=== PATIENT | male | born 1930 | race Caucasian/White ===

== ENCOUNTER 2016-03-23 13:07 | Outpatient (CLI) ==
[2012-08-21 10:30] VITALS: BP 112/68; TEMP 97.3
[2016-03-11 07:49] VITALS: BMI 23.8
[2016-03-23 14:50] LABS: BILIRUBIN,URINE Negative (NEGATIVE); KETONES,URINE Negative (NEGATIVE); LEUKOCYTE ESTERASE ,URINE Negative (NEGATIVE); NITRITE,URINE Negative (NEGATIVE); PH,URINE 5.5 (5-9); PROTEIN,URINE Negative (NEGATIVE); URINE, BLOOD Negative (NEGATIVE)
[2016-03-23 14:54] LABS: ADD URINE MICROSCOPIC NO
== END 2016-03-23 13:08 | disposition home or self-care (01) ==
LOC: LAB 13:07
PROVIDERS: ATTEND General Practice
DX: N40.1 Benign prostatic hyperplasia with lower urinary tract symptoms (principal)
CPT/HCPCS: 81001

== ENCOUNTER 2016-04-24 09:26 | Outpatient (CLI) ==
[2012-08-21 10:30] VITALS: BP 112/68; TEMP 97.3
[2016-03-11 07:49] VITALS: BMI 23.8
--- NOTE | 2016-04-24 10:50 | US ---
Examination: Huerta-scale and real-time color Doppler imaging of the carotid arteries. Comparison: 03/24/2015. Reason for study: Hypertension, memory loss. FINDINGS: Right side: There is a moderate amount of dense atherosclerotic plaque seen within the common carotid, the bulb, and the proximal internal carotid artery on the right. The peak systolic velocity in the right internal carotid artery is elevated measuring 140 cm/sec. T he right peak systolic velocity ratio of is within normal limits measuring 1.7. There is normal rig ht antegrade vertebral artery flow. Left side: There is moderate amount of dense atherosclerotic plaque seen within the common carotid, the bulb, a nd the proximal internal carotid artery in the left. The left internal carotid artery peak systolic velocity is within normal limits measuring 80 cm/sec with a peak systolic velocity ratio measuring 0.9. There is normal antegrade flow in the left verte bral artery. Impression: 1. Moderate plaque formation in the right internal carotid artery bulb resulting in hemodynamically moderate stenosis of 50-69%. 2. Moderate plaque formation in the left internal carotid artery bulb resulting in mild hemodynamic stenosis of less than 50%.
== END 2016-04-24 09:27 | disposition home or self-care (01) ==
LOC: RAD 09:26
PROVIDERS: ATTEND General Practice
DX: R09.89 Other specified symptoms and signs involving the circulatory and respiratory systems (principal)

== ENCOUNTER 2016-06-02 16:11 | Outpatient (CLI) ==
[2012-08-21 10:30] VITALS: BP 112/68; TEMP 97.3
[2016-03-11 07:49] VITALS: BMI 23.8
[2016-06-02 16:43] LABS: FLU INTERNAL QC INTERNAL QC VALID; RAPID FLU A POSITIVE (NEGATIVE); RAPID FLU B NEGATIVE (NEGATIVE)
== END 2016-06-02 16:12 | disposition home or self-care (01) ==
LOC: LAB 16:11
PROVIDERS: ATTEND General Practice
DX: R50.9 Fever, unspecified (principal)
CPT/HCPCS: 87651; 87804; 87880

== ENCOUNTER 2016-07-13 09:12 | Outpatient (CLI) ==
[2012-08-21 10:30] VITALS: BP 112/68; TEMP 97.3
[2016-03-11 07:49] VITALS: BMI 23.8
--- NOTE | 2016-07-13 09:31 | DI ---
EXAM: Chest two views HISTORY: Heart failure, unspecified COMPARISON: 12/06/2015 TECHNIQUE: Two views of the chest were performed FINDINGS: The lungs are clear. Lungs are hyperinflated. There is no pleural effusion or pneumothora x. The heart is normal in size. Calcified pleural plaques. The mediastinal contour is unchanged, no ting atherosclerosis. There are no acute abnormalities of the bones. IMPRESSION: 1. No acute cardiopulmonary process. 2. Calcified pleural plaques, consistent with prior asbestos exposure. 3. Hyperinflated lungs may suggest chronic obstructive pulmonary disease
== END 2016-07-13 09:13 | disposition home or self-care (01) ==
LOC: RAD 09:12
PROVIDERS: ATTEND General Practice
DX: I50.9 Heart failure, unspecified (principal); I27.2 Other secondary pulmonary hypertension; I48.91 Unspecified atrial fibrillation; K21.9 Gastro-esophageal reflux disease without esophagitis; M53.9 Dorsopathy, unspecified; M12.88 Other specific arthropathies, not elsewhere classified, other specified site; M47.816 Spondylosis without myelopathy or radiculopathy, lumbar region; D64.9 Anemia, unspecified; N40.1 Benign prostatic hyperplasia with lower urinary tract symptoms; G47.00 Insomnia, unspecified; M51.27 Other intervertebral disc displacement, lumbosacral region; Z79.899 Other long term (current) drug therapy
CPT/HCPCS: 36415; 80053; 80061; 81001; 83880; 85025; 93005; 93010

== ENCOUNTER 2016-07-13 10:35 | Outpatient (CLI) ==
[2012-08-21 10:30] VITALS: BP 112/68; TEMP 97.3
[2016-03-11 07:49] VITALS: BMI 23.8
[2016-07-13 13:56] LABS: BASOPHILS # (AUTO) 0.1 K/uL (0-0.2); BASOPHILS % (AUTO) 0.9 % (0.0-3.0); EOSINOPHILS # (AUTO) 0.3 K/ul (0.0-0.7); EOSINOPHILS % (AUTO) 4.4 % (0.0-7.0); HEMATOCRIT 37.4 % (42.0-52.0); HEMOGLOBIN 11.9 g/dl (14.0-18.0); IMMATURE GRANULOCYTE % (AUTO) 0.3 % (0.0-5.0); LYMPHOCYTES # (AUTO) 1.9 K/uL (0.60-3.4); MEAN CORPUSCULAR HEMOGLOBIN 28.3 pg (27.0-31.0); MEAN CORPUSCULAR HGB CONC 31.8 (31.8-35.4); MEAN CORPUSCULAR VOLUME 88.8 fl (80.0-94.0); MONOCYTES # (AUTO) 0.5 K/uL (0.4-2.0); MONOCYTES % (AUTO) 7.8 (0-10); NEUTROPHILS # (AUTO) 3.2 K/ul (2.0-6.9); NEUTROPHILS % (AUTO) 54.6; PLATELET COUNT 162 10^3/uL (140-440); RED BLOOD COUNT 4.21 10^6/ul (4.70-6.10); WHITE BLOOD COUNT 5.88 K/ul (4.2-10.2)
[2016-07-13 13:57] LABS: ADD URINE MICROSCOPIC YES; BILIRUBIN,URINE Negative (NEGATIVE); KETONES,URINE Trace (NEGATIVE); LEUKOCYTE ESTERASE ,URINE Negative (NEGATIVE); NITRITE,URINE Negative (NEGATIVE); PROTEIN,URINE 2+ (NEGATIVE); URINE, BLOOD Trace-intact (NEGATIVE)
[2016-07-13 15:14] LABS: ALBUMIN/GLOBULIN RATIO 1.03; ANION GAP 12.4; BILIRUBIN,TOTAL 1.41 mg/dL (0.00-1.20); BUN/CREATININE RATIO 19.23; CALCIUM 9.8 mg/dL (8.2-10.2); CHOL/HDL RATIO 2.5 (4.5-6.4); CREATININE 1.3 mg/dL (0.60-1.10); POTASSIUM 4.4 mmol/L (3.5-5.1); TOTAL PROTEIN 7.9 g/dL (5.8-8.1)
== END 2016-07-13 10:36 | disposition home or self-care (01) ==
LOC: LAB 10:35
PROVIDERS: ATTEND General Practice
DX: I50.9 Heart failure, unspecified (principal); K21.9 Gastro-esophageal reflux disease without esophagitis; M53.9 Dorsopathy, unspecified; M12.88 Other specific arthropathies, not elsewhere classified, other specified site; M47.816 Spondylosis without myelopathy or radiculopathy, lumbar region; I48.91 Unspecified atrial fibrillation; D64.9 Anemia, unspecified; N40.1 Benign prostatic hyperplasia with lower urinary tract symptoms; G47.00 Insomnia, unspecified; M51.27 Other intervertebral disc displacement, lumbosacral region; I27.2 Other secondary pulmonary hypertension; Z79.899 Other long term (current) drug therapy
CPT/HCPCS: 36415; 80053; 80061; 81001; 83880; 85025

== ENCOUNTER 2016-07-24 07:00 | Day surgery (SDC) ==
[2016-03-11 07:49] VITALS: BMI 23.8
[2016-07-24] MEDS: OCUFEN 0.03% OPTH SOL OP PRN ×3 (08:10→08:35)
[2016-07-24] MEDS: CYCLOGYL 2% OPTH OP PRN ×3 (08:10→08:20)
[2016-07-24] MEDS: TETRACAINE 0.5% UNIT-DOSE OP PRN ×3 (08:10→08:35)
[2016-07-24] MEDS: AK-DILATE 10% OPTH SOL OP PRN ×3 (08:10→08:20)
[2016-07-24] MEDS ORDERED: LIDOCAINE 1% 20 ML MDV ID ONE (08:22)
[2016-07-24] MEDS ORDERED: LIDOCAINE 1% 20 ML MDV ONE (08:22)
[2016-07-24] MEDS ORDERED: SUBLIMAZE ONE (08:49)
[2016-07-24] MEDS ORDERED: VERSED ONE (08:49)
[2016-07-24] MEDS ORDERED: TIMOPTIC 0.5% OPTH OP ONE (09:19)
[2016-07-24] MEDS ORDERED: DIAMOX PO ONE (09:50)
[2016-07-24] MEDS ORDERED: DIAMOX ONE (09:50)
[2016-07-24 10:10] VITALS: BP 124/68; TEMP 97.4
--- NOTE | 2016-07-24 14:53 | OP ---
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 OPERATION: PHACOEMULSIFICATION ASPIRATION OF CATARACT LEFT EYE; EXCISION OF PTERYGIUM TEMPORAL CORNEA, LEFT EYE. PLACEMENT OF POSTERIOR CHAMBER LENS. PHACO TIME 42.4 SECONDS AT 15.0% POWER. LENS MODEL LEO [id number]. DIOPTER + 22.5D. TECHNIQUE: CLEAR CORNEA. ANESTHESIA: TOPICAL ANESTHESIA W/ANESTHESIA MONITORING. OPERATIVE REPORT: Topical anesthesia consisting of Tetracaine was applied to the cornea and Xylocaine Methyl Paraben free of MFP was injected intracamerally into the anterior chamber. The patient was then brought into the operating room , prepped and draped in the usual ophthalmic manner. A lid speculum was placed and the operating microscope was used. A paracentesis was made at the 3 o' clock position. A clear corneal incision was made just out to the limbus. The anterior chamber was entered just inside the clear cornea. Viscoelastic was injected into the anterior chamber. A capsulotomy was performed with a bent # 27 gauge needle. Phacoemulsification was then performed in the posterior chamber. After completion of the phacoemulsification, residual cortical material was aspirated with the irrigation-aspiration system. The posterior capsule was polished. Viscoelastic was injected into the anterior and posterior chambers to inflate the capsular bag. Lens were placed via an Unfolder system and stabilized in the bag. Viscoelastic was removed from the anterior chamber. The wound was checked for any leakage. The four sponges were removed from the fornix. Topical antibiotic steroid and nonsteroidal drops were also applied to the cornea. A West shield was applied. The patient had temporal pterygium at the site of incision. The pterygium was excised and corneal base was polished. The patient left the operating room in good condition without any complications. INTRAOPERATIVE MEDICATIONS: Xylocaine Methyl Paraben Free MPF MTDD
== END 2016-07-24 10:30 | disposition home or self-care (01) ==
LOC: SURG 07:00
PROVIDERS: ATTEND Ophthalmology
DX: H25.12 Age-related nuclear cataract, left eye (principal); H11.002 Unspecified pterygium of left eye

== ENCOUNTER 2016-10-13 08:41 | Outpatient (CLI) ==
[2012-08-21 10:30] VITALS: TEMP 97.3
[2016-03-11 07:49] VITALS: BMI 23.8
[2016-10-13 12:54] LABS: BASOPHILS % (AUTO) 0.7 % (0.0-3.0); EOSINOPHILS # (AUTO) 0.3 K/ul (0.0-0.7); EOSINOPHILS % (AUTO) 4.2 % (0.0-7.0); HEMATOCRIT 36.5 % (42.0-52.0); HEMOGLOBIN 11.9 g/dl (14.0-18.0); IMMATURE GRANULOCYTE % (AUTO) 0.3 % (0.0-5.0); LYMPHOCYTES # (AUTO) 1.8 K/uL (0.60-3.4); LYMPHOCYTES % (AUTO) 30.1 (10.0-50.0); MEAN CORPUSCULAR HEMOGLOBIN 28.9 pg (27.0-31.0); MEAN CORPUSCULAR HGB CONC 32.6 (31.8-35.4); MEAN CORPUSCULAR VOLUME 88.6 fl (80.0-94.0); MONOCYTES # (AUTO) 0.5 K/uL (0.4-2.0); MONOCYTES % (AUTO) 8.5 (0-10); NEUTROPHILS # (AUTO) 3.4 K/ul (2.0-6.9); NEUTROPHILS % (AUTO) 56.2; PLATELET COUNT 154 10^3/uL (140-440); RED BLOOD COUNT 4.12 10^6/ul (4.70-6.10); WHITE BLOOD COUNT 6.01 K/ul (4.2-10.2)
[2016-10-13 12:58] LABS: BILIRUBIN,URINE Negative (NEGATIVE); KETONES,URINE Negative (NEGATIVE); LEUKOCYTE ESTERASE ,URINE Negative (NEGATIVE); NITRITE,URINE Negative (NEGATIVE); PH,URINE 6.5 (5-9); PROTEIN,URINE 2+ (NEGATIVE); URINE, BLOOD 1+ (NEGATIVE)
[2016-10-13 13:06] LABS: ADD URINE MICROSCOPIC YES
[2016-10-13 13:09] LABS: ALBUMIN 3.7 g/dL (3.4-5.0); ALBUMIN/GLOBULIN RATIO 0.95; ANION GAP 16.1; BILIRUBIN,TOTAL 1.07 mg/dL (0.00-1.20); BUN/CREATININE RATIO 20.35; CALCIUM 9.9 mg/dL (8.2-10.2); CHOL/HDL RATIO 2.6 (4.5-6.4); CREATININE 1.13 mg/dL (0.60-1.10); POTASSIUM 4.1 mmol/L (3.5-5.1); TOTAL PROTEIN 7.6 g/dL (5.8-8.1)
== END 2016-10-13 08:42 | disposition home or self-care (01) ==
LOC: LAB 08:41
PROVIDERS: ATTEND General Practice
DX: I50.9 Heart failure, unspecified (principal); I65.21 Occlusion and stenosis of right carotid artery; I48.91 Unspecified atrial fibrillation; D64.9 Anemia, unspecified; N40.1 Benign prostatic hyperplasia with lower urinary tract symptoms; K21.9 Gastro-esophageal reflux disease without esophagitis; I27.2 Other secondary pulmonary hypertension; Z79.899 Other long term (current) drug therapy
CPT/HCPCS: 36415; 80053; 80061; 81001; 83880; 85025

== ENCOUNTER 2016-10-18 07:08 | Outpatient (CLI) ==
[2012-08-21 10:30] VITALS: TEMP 97.3
[2016-03-11 07:49] VITALS: BMI 23.8
--- NOTE | 2016-10-18 08:34 | US ---
EXAM: Renal ultrasound. History: Microscopic hematuria. Comparison: CT abdomen pelvis 03/11/2016 Technique: Multiple sonographic images through the kidneys were obtained. Color duplex Doppler was used to interrogate vascular flow. Findings: The right kidney measures 10.5 cm in long length without evidence for hydronephrosis, mass or shadow ing calculus. The left kidney measures 10.6 cm in long length without evidence for hydronephrosis, mass or shadowi ng calculus. 2 cm soft tissue mass seen near the base of the bladder. Prostate is enlarged and abutting the base of the bladder. Neither ureteral jet was visualized within the bladder. Bladder is not well diste nded. Impression: 1. Sonographically normal kidneys. 2. Concern for soft tissue bladder mass that could be malignant. Further evaluation recommended. 3. Enlarged prostate abutting base of bladder.
== END 2016-10-18 07:09 | disposition home or self-care (01) ==
LOC: RAD 07:08
PROVIDERS: ATTEND General Practice
DX: R31.29 Other microscopic hematuria (principal)
CPT/HCPCS: 76770

== ENCOUNTER 2016-10-24 12:26 | Outpatient (CLI) ==
[2012-08-21 10:30] VITALS: TEMP 97.3
[2016-03-11 07:49] VITALS: BMI 23.8
--- NOTE | 2016-10-24 13:18 | CT ---
EXAM: CT of the soft tissue neck without contrast History: Right ear infection. Technique: Multiplanar CT images through the soft tissue neck were obtained without the administrat ion of IV contrast Findings: The visualized lung apices are free of consolidation. Degenerative changes of the cervic al spine. Epiglottis is not thickened. Mild mucosal thickening of the paranasal sinuses. No fluid seen within the mastoid air cells. Surrounding soft tissues demonstrate no acute findings. No par otid masses or parotid inflammation. Submandibular glands are not inflamed. Atherosclerotic vascul ar calcifications of the carotid arteries. Evaluation for lymph nodes is limited due to the lack of contrast administration but no pathologically enlarged lymph nodes are identified. No discrete thy roid nodule identified by CT. Peritonsillar inflammation. Orbits are intact. Impression: 1. Mild paranasal sinus disease. 2. No acute findings within the soft tissue neck. 3. Atherosclerotic vascular disease.
== END 2016-10-24 12:27 | disposition home or self-care (01) ==
LOC: RAD 12:26
PROVIDERS: ATTEND General Practice
DX: R22.1 Localized swelling, mass and lump, neck (principal)

== ENCOUNTER 2017-02-15 14:40 | Outpatient (CLI) ==
[2012-08-21 10:30] VITALS: TEMP 97.3
[2017-01-03 15:02] VITALS: BMI 24.5
[2017-02-15 15:00] LABS: BASOPHILS # (AUTO) 0.1 K/uL (0-0.2); BASOPHILS % (AUTO) 0.9 % (0.0-3.0); EOSINOPHILS # (AUTO) 0.3 K/ul (0.0-0.7); EOSINOPHILS % (AUTO) 6.2 % (0.0-7.0); HEMATOCRIT 37.7 % (42.0-52.0); IMMATURE GRANULOCYTE % (AUTO) 0.4 % (0.0-5.0); LYMPHOCYTES % (AUTO) 36.8 (10.0-50.0); MEAN CORPUSCULAR HEMOGLOBIN 28.4 pg (27.0-31.0); MEAN CORPUSCULAR HGB CONC 31.8 (31.8-35.4); MEAN CORPUSCULAR VOLUME 89.3 fl (80.0-94.0); MONOCYTES # (AUTO) 0.5 K/uL (0.4-2.0); MONOCYTES % (AUTO) 9.5 (0-10); NEUTROPHILS # (AUTO) 2.5 K/ul (2.0-6.9); NEUTROPHILS % (AUTO) 46.2; PLATELET COUNT 151 10^3/uL (140-440); RED BLOOD COUNT 4.22 10^6/ul (4.70-6.10); WHITE BLOOD COUNT 5.46 K/ul (4.2-10.2)
[2017-02-15 15:02] LABS: BILIRUBIN,URINE Negative (NEGATIVE); KETONES,URINE Negative (NEGATIVE); LEUKOCYTE ESTERASE ,URINE Trace (NEGATIVE); NITRITE,URINE Negative (NEGATIVE); PROTEIN,URINE 2+ (NEGATIVE); URINE, BLOOD 1+ (NEGATIVE)
[2017-02-15 15:06] LABS: ADD URINE MICROSCOPIC YES
[2017-02-15 15:15] LABS: ALBUMIN 3.5 g/dL (3.4-5.0); ALBUMIN/GLOBULIN RATIO 0.85; BILIRUBIN,TOTAL 1.24 mg/dL (0.00-1.20); BUN/CREATININE RATIO 16.94; CALCIUM 9.8 mg/dL (8.2-10.2); CHOL/HDL RATIO 2.8 (4.5-6.4); CREATININE 1.18 mg/dL (0.60-1.10); TOTAL PROTEIN 7.6 g/dL (5.8-8.1)
== END 2017-02-15 14:41 | disposition home or self-care (01) ==
LOC: LAB 14:40
PROVIDERS: ATTEND General Practice
DX: I50.9 Heart failure, unspecified (principal); I65.21 Occlusion and stenosis of right carotid artery; I48.91 Unspecified atrial fibrillation; D64.9 Anemia, unspecified; N40.1 Benign prostatic hyperplasia with lower urinary tract symptoms; K21.9 Gastro-esophageal reflux disease without esophagitis; I27.20 Pulmonary hypertension, unspecified; Z79.899 Other long term (current) drug therapy
CPT/HCPCS: 36415; 80053; 80061; 81001; 85025

== ENCOUNTER 2017-06-11 07:42 | Outpatient (CLI) ==
[2012-08-21 10:30] VITALS: TEMP 97.3
[2017-01-03 15:02] VITALS: BMI 24.5
== END 2017-06-11 07:43 | disposition home or self-care (01) ==
LOC: LAB 07:42
PROVIDERS: ATTEND General Practice
DX: D64.9 Anemia, unspecified (principal); Z79.899 Other long term (current) drug therapy
CPT/HCPCS: 36415; 80053; 80061; 81001; 85025

== ENCOUNTER 2017-09-04 15:21 | Outpatient (CLI) ==
[2012-08-21 10:30] VITALS: TEMP 97.3
[2017-01-03 15:02] VITALS: BMI 24.5
--- NOTE | 2017-09-04 16:04 | US ---
EXAM: Bilateral carotid artery Doppler History: Right carotid stenosis, follow-up Comparison: Bilateral carotid artery Doppler 04/24/2016 Technique: Multiple sonographic images through the bilateral internal carotid arteries were obtained . Color duplex Doppler was used to interrogate vascular flow. Findings: The right ICA peak systolic velocity is within normal limits measuring 70 cm/sec. The right ICA/cca PSV ratio is normal at 1.1. The right vertebral artery is patent and demonstrates antegrade flow. G ray scale images demonstrate moderate plaque buildup within the right internal carotid artery. The left ICA peak systolic velocity is within normal limits measuring 70 cm/sec. The left ICA/cca PS V ratio is normal at 0.90. The left vertebral artery is patent and demonstrates antegrade flow. Gra y scale images demonstrate moderate plaque buildup within the left internal carotid artery. Impression: 1. The velocities and ratios indicate no significant hemodynamic stenosis of the bilateral internal carotid arteries. 2. However, alicea scale findings indicate moderate plaque buildup within the bilateral internal carot id arteries. Clarification can be obtained with a CTA of the neck.
== END 2017-09-04 15:22 | disposition home or self-care (01) ==
LOC: RAD 15:21
PROVIDERS: ATTEND General Practice
DX: R09.89 Other specified symptoms and signs involving the circulatory and respiratory systems (principal); I65.21 Occlusion and stenosis of right carotid artery; I48.91 Unspecified atrial fibrillation
CPT/HCPCS: 93005; 93010

== ENCOUNTER 2017-09-12 06:02 | Outpatient (CLI) ==
[2012-08-21 10:30] VITALS: TEMP 97.3
[2017-01-03 15:02] VITALS: BMI 24.5
== END 2017-09-12 06:03 | disposition home or self-care (01) ==
LOC: LAB 06:02
PROVIDERS: ATTEND General Practice
DX: I50.9 Heart failure, unspecified (principal); K21.9 Gastro-esophageal reflux disease without esophagitis; D64.9 Anemia, unspecified; I27.20 Pulmonary hypertension, unspecified; N40.1 Benign prostatic hyperplasia with lower urinary tract symptoms; I48.91 Unspecified atrial fibrillation; I65.21 Occlusion and stenosis of right carotid artery; Z79.899 Other long term (current) drug therapy; Z12.5 Encounter for screening for malignant neoplasm of prostate
CPT/HCPCS: 36415; 80053; 80061; 81001; 85025

== ENCOUNTER 2017-09-24 07:01 | Day surgery (SDC) ==
[2017-01-03 15:02] VITALS: BMI 24.5
[2017-09-24] MEDS: CYCLOGYL 2% OPTH OP PRN ×3 (07:51→08:01)
[2017-09-24] MEDS: TETRACAINE 0.5% UNIT-DOSE OP PRN ×3 (07:51→09:25)
[2017-09-24] MEDS: AK-DILATE 10% OPTH SOL OP PRN ×3 (07:52→08:01)
[2017-09-24] MEDS: OCUFEN 0.03% OPTH SOL OP PRN ×2 (07:52→08:07)
[2017-09-24] MEDS ORDERED: BETADINE OPTH PREP OP ONE (07:57)
[2017-09-24] MEDS ORDERED: LIDOCAINE 1% 20 ML MDV ID STA (07:57)
[2017-09-24] MEDS ORDERED: DIAMOX PO STA (07:57)
[2017-09-24] MEDS ORDERED: DIPRIVAN 20 ML VIAL IVP ONE (09:28)
[2017-09-24] MEDS ORDERED: VERSED ONE (09:28)
[2017-09-24] MEDS ORDERED: LIDOCAINE HCL 1% SDV INJ PRN (09:46)
[2017-09-24] MEDS ORDERED: BSS WITH EPINEPHRINE OP ONE (09:46)
[2017-09-24] MEDS ORDERED: VANCOMYCIN INTRAOCULA PRN (10:00)
[2017-09-24] MEDS ORDERED: GENTAK OPTH OINT OP PRN (10:00)
[2017-09-24] MEDS ORDERED: GENTAMICIN SULFATE INTRAOCULA PRN (10:00)
[2017-09-24] MEDS ORDERED: SOLU-CORTEF 250 MG INTRAOCULA PRN (10:00)
[2017-09-24] MEDS ORDERED: DIAMOX ONE (11:25)
[2017-09-24 15:02] VITALS: TEMP 98.6
[2017-09-24 15:03] VITALS: BP 121/56
--- NOTE | 2017-09-25 09:07 | OP ---
PREOPERATIVE DIAGNOSIS: CATARACT EXTRACTION WITH IOL, RIGHT EYE. INJECTION PARA PLANA VITREOUS 3.00 MM. POSTOPERATIVE DIAGNOSIS: SAME. OPERATION PHACOEMULSIFICATION ASPIRATION OF CATARACT RIGHT EYE. PLACEMENT OF POSTERIOR CHAMBER LENS. PHACO TIME 30.9 SECONDS AT 5.0% POWER. LENS MODEL TECSERVANDO [id number]. DIOPTER +21.0D. TECHNIQUE: CLEAR CORNEA. ANESTHESIA: TOPICAL ANESTHESIA W/ANESTHESIA MONITORING. OPERATIVE REPORT: Topical anesthesia consisting of Tetracaine was applied to the cornea and Xylocaine Methyl Paraben free of MFP was injected intracamerally into the anterior chamber. The patient was then brought into the operating room , prepped and draped in the usual ophthalmic manner. A lid speculum was placed and the operating microscope was used. A paracentesis was made at the 3 o' clock position. A clear corneal incision was made just out to the limbus. The anterior chamber was entered just inside the clear cornea. Viscoelastic was injected into the anterior chamber. A capsulotomy was performed with a bent # 27 gauge needle. Phacoemulsification was then performed in the posterior chamber. After completion of the phacoemulsification, residual cortical material was aspirated with the irrigation-aspiration system. The posterior capsule was polished. Viscoelastic was injected into the anterior and posterior chambers to inflate the capsular bag. Lens were placed via an Unfolder system and stabilized in the bag. Viscoelastic was removed from the anterior chamber. The wound was checked for any leakage. The four sponges were removed from the fornix. Topical antibiotic steroid and nonsteroidal drops were also applied to the cornea. A West shield was applied. The patient left the operating room in good condition without any complications. INTRAOPERATIVE MEDICATIONS: Xylocaine Methyl Paraben Free MPF ADDENDUM: Following removal of epi nucleus, patient moved causing posterior capsule to impale phaco tip. Central rent occupied in the posterior capsule. Remaining cortex was removed using [place]. However some cortex plus vitreous remained. Anterior vitrectomy was performed through [place] incision. Lens was placed in sulcus. Pupil remained small and round. Subconjunctival injection with vancomycin, gentamicin and Solu-Cortef. Para plana incision closed with 5.0 Vicryl. [facility]ITALChristoph
== END 2017-09-24 11:30 | disposition home or self-care (01) ==
LOC: SURG 07:01
PROVIDERS: ATTEND Ophthalmology
DX: H25.11 Age-related nuclear cataract, right eye (principal); H25.011 Cortical age-related cataract, right eye; Z96.1 Presence of intraocular lens

== ENCOUNTER 2017-10-05 17:01 | Observation (INO) ==
[2017-10-05 17:32] VITALS: BMI 23.7
[2017-10-05] MEDS: DEXTROSE 5%-1/2NS IV SOLUTION 1,000 ML IV SCH (17:52)
--- NOTE | 2017-10-05 18:32 | CT ---
Exam: CT abdomen pelvis without intravenous contrast. Comparison: 03/11/2016. Reason for exam: Abdominal pain. FINDINGS: Image interpretation is limited by the lack of intravenous contrast administration. Partially calcified pleural plaque is seen in the right hemidiaphragm. The partially imaged heart ap pears prominent in size. Atherosclerotic disease is seen within the aorta and distal arterial vasculature. Layering stones/sludge is seen within the dependent portion of the gallbladder. The liver has a nodu lar appearance. The spleen, pancreas, and adrenal glands appear grossly unremarkable. Hypodensities are seen in the left kidney incompletely characterize without intravenous contrast. No hydronephrosis, hydroureter or nephrolithiasis in either kidney. There is a moderately-sized right inguinal bowel containing hernia. The bladder appears grossly unremarkable. No inflammatory changes are seen within the abdominal or pelvic fat. No intra-abdominal free air or pelvic free fluid. No suspicious appearing osteoblastic or osteolytic lesions with degenerative disease in the lumbosacr al spine. Diverticulosis without evidence of diverticulitis Impression: 1. Indeterminate density exophytic left renal nodule on axial image number 61. Ultrasound is recomme nded for further characterization. 2. Cholelithiasis without obvious cholecystitis. Ultrasound may be performed for further characteri zation. 3. Bowel containing right inguinal hernia without evidence of obstruction. 4. Partially calcified and calcified pleural plaques
[2017-10-05] MEDS ORDERED: OCUFLOX 0.3% OPTH SOL OP SCH (21:00)
[2017-10-05] MEDS ORDERED: KETOROLAC TROMETHAMINE RIGHTEYE SCH (21:00)
[2017-10-05] MEDS ORDERED: NON-FORMULARY MEDICATION (Dabigatran Etexilate Mesylate [Pradaxa] 150 MG) PO SCH (21:00)
[2017-10-05] MEDS ORDERED: PRED FORTE 1% OPTH SOL OP SCH (21:00)
[2017-10-05] MEDS: PROTONIX IV IVP SCH (22:04)
[2017-10-05] MEDS ORDERED: CRAMPS PO PRN (23:58)
[2017-10-06] MEDS: DEXTROSE 5%-1/2NS IV SOLUTION 1,000 ML IV SCH ×2 (05:52→17:48)
[2017-10-06] MEDS ORDERED: LASIX TAB PO SCH ×2 (06:30→09:00)
[2017-10-06] MEDS: PROTONIX IV IVP SCH ×2 (08:01→22:16)
[2017-10-06] MEDS: NON-FORMULARY MEDICATION (Dabigatran Etexilate Mesylate [Pradaxa] 150 MG) PO SCH ×2 (08:04→22:16)
[2017-10-06] MEDS: PROSCAR PO SCH (08:05)
[2017-10-06] MEDS: KETOROLAC TROMETHAMINE RIGHTEYE SCH ×3 (08:05→22:16)
[2017-10-06] MEDS: PRED FORTE 1% OPTH SOL OP SCH ×3 (08:05→22:16)
[2017-10-06] MEDS: OCUFLOX 0.3% OPTH SOL OP SCH ×3 (08:05→22:16)
[2017-10-07] MEDS: DEXTROSE 5%-1/2NS IV SOLUTION 1,000 ML IV SCH (06:02)
[2017-10-07] MEDS ORDERED: LASIX TAB PO SCH (06:30)
[2017-10-07] MEDS: OCUFLOX 0.3% OPTH SOL OP SCH ×2 (08:40→15:16)
[2017-10-07] MEDS: NON-FORMULARY MEDICATION (Dabigatran Etexilate Mesylate [Pradaxa] 150 MG) PO SCH (08:40)
[2017-10-07] MEDS: KETOROLAC TROMETHAMINE RIGHTEYE SCH ×2 (08:40→15:17)
[2017-10-07] MEDS: PRED FORTE 1% OPTH SOL OP SCH ×2 (08:40→15:17)
[2017-10-07] MEDS: PROSCAR PO SCH (08:42)
[2017-10-07] MEDS: PROTONIX IV IVP SCH (09:15)
[2017-10-07 13:28] VITALS: BP 158/84; TEMP 97
--- NOTE | 2017-10-08 11:43 | HP ---
DATE OF SERVICE: 10/05/17 CHIEF COMPLAINT/HISTORY OF PRESENT ILLNESS: Upper abdominal pain beginning at the lower area right lower quadrant radiating to the epigastric area and some reflux problems. This began about 3 o'clock in the morning on the day of admission. The patient presented to the office and the examination revealed some tenderness more in the epigastric area but also in the right upper quadrant. This patient was known to have cholelithiasis. CT scan was ordered as an outpatient; however, it took so much time to get it approved, the patient had constant pain so at this time I felt that it probably should be examined further since it could possibly be peptic ulcer disease and maybe with a GI bleed and also that this patient is on Pradaxa. The patient with abdominal pain, had vomited once and also had diarrhea. The patient's WBC before admission was 5,590, hemoglobin 12.2, hematocrit 37.2. Platelet 143,000 and differential normal. BUN slightly elevated at 23, creatinine 1.16, GFR 60. Total bilirubin 2.1. The patient's total bilirubin had been increasing, reason to me is undetermined. The AST and ALT were normal. Urinalysis 2+ protein otherwise unremarkable. PAST PERSONAL HISTORY: The patient had recent cataract extraction with lens implantation. The patient was admitted because of hematuria, too numerous to count. This patient is on Pradaxa. He also had back pain in the past plus hypertension, atrial fibrillation on Pradaxa, congestive heart failure probably secondary to atrial fibrillation, GERD, coronary artery disease, dyslipidemia, pulmonary hypertension, sleep apnea with C-PAP, prostatic problems, treated. The patient had prostatic surgery 2015. FAMILY HISTORY: Father of septicemia; mother had congestive heart failure. Two brothers had malignancy, one brother had myocardial infarction and continued heart problems. SOCIAL HISTORY: The patient is a , self-sufficient. He has good support from his daughter. He stopped smoking years ago. No alcoholic beverages. MEDICATIONS: (PRIOR TO THIS ADMISSION) Proscar 5 mg daily Glucosamine Chondroitin one tablet daily Pepcid 20 mg daily Simvastatin 20 mg daily at bedtime Flomax 0.4 mg daily Leg cramp medication [id number] one daily Ferrous Sulfate 325 mg twice a day Lasix 40 mg daily Pradaxa 150 mg twice a day Antacid 30 cc p.o. daily Loratadine 10 mg daily Potassium Chloride 20 mEq tablet daily Citrucal plus D one daily Xalatan one drop both eyes at bedtime ALLERGIES: DICLOFENAC SODIUM AND PENICILLIN REVIEW OF SYSTEMS: CONSTITUTIONAL: The patient is alert without any fever or chills. No significant fatigue. AMMONIA DISTILLER: Denies any headaches. No ataxia, no syncopal episode, no seizure disorder. He is alert and oriented. VISUAL: Denies any double vision, loss of vision or blurred vison or hemaniopsia. AUDITORY: The patient is able to hear and denies any tinnitus, pain or drainage. RESPIRATORY: Denies any cough, shortness of breath with usual exertion. No hemoptysis. CARDIOVASCULAR: The patient denies any chest oppression or chest tightness or sensation of weight, sitting on his chest and no diaphoresis. The patient does have nausea, probably not related to heart. GASTROINTESTINAL: The patient has nausea and vomited once with diarrhea and abdominal pain that is persistent beginning with the lower part of the right upper quadrant radiating to the epigastric area. He still has tenderness and constant pain. GENITOURINARY: The patient denies any pain or urination. He is urinating better after surgery and with medications. No gross blood in his urine. INTEGUMENT: No rash, pruritus or subcutaneous ecchymosis. MUSCULOSKELETAL: Denies any significant joint problems or pain. This patient does have some osteoarthritis but seemed to have tolerable pain. ENDOCRINE: Negative. No polyuria or polydipsia. HEMATOLOGIC: Negative for prolonged bleeding. Negative for spontaneous subcutaneous ecchymosis. He does have anemia. PSYCHIATRIC: The patient's affect is normal. Denies any anxiety or depression. He does sleep adequately at night. PHYSICAL EXAMINATION: GENERAL: 86-year-old male who is alert, oriented times four, not dyspneic or tachypneic admitted to the hospital because of constant upper abdominal pain mostly epigastric with tenderness in both subcostal areas more in the epigastric area. The patient had vomited as well as experienced diarrhea. VITAL SIGNS: On admission, temperature 97.8, pulse 87, BP 170/100 left and 172/ 96 right, respiratory rate 16, oxygen saturation 96 on room air. Weight 165 lbs , 5.54 ozs. HEAD: Unremarkable. Face is symmetrical and equal with no facial weakness, no redness, no remarkable tenderness to palpation and/or pressure in the frontomaxillary sinus areas. EYES: Pupils equal/reactive to light about 3 mm in size and round. Conjunctivae slightly pale. Sclerae not icteric. EARS: Unremarkable. MOUTH: No inflammation. No exudates. THROAT: No inflammation, tumors or exudate. NECK: No masses. No bruit. No tenderness. No rigidity. CHEST: Symmetrical and equal with good expansion with no remarkable tenderness. LUNGS: Breath sounds are heard on both sides, somewhat diminished but no rales or wheezing. HEART: Audible, irregular with good tones. Not tachycardic. ABDOMEN: Flat, soft mostly in the lower abdomen with tenderness in the right upper quadrant more at the epigastric area and there is some tenderness also in the left upper quadrant. There are no masses palpable. Bowel sounds are active. EXTERNAL GENITALIA: Not examined. RECTAL: Not done. LOWER EXTREMITIES: Symmetrical and equal with no significant edema. UPPER EXTREMITIES: Symmetric and equal. ASSESSMENT: 1. ABDOMINAL PAIN PROBABLY PEPTIC ULCER DISEASE. 2. ABDOMINAL PAIN SECONDARY TO GALLBLADDER COLIC. 3. CHOLELITHIASIS BY HISTORY. 4. HISTORY OF HYPERTENSION. 5. HISTORY OF PULMONARY HYPERTENSION. 6. ATRIAL FIBRILLATION ON PRADAXA. PLAN: 1. CT scan of the abdomen and pelvis without contrast. [facility]
--- NOTE | 2017-11-01 13:29 | DS ---
DATE OF SERVICE: 10/07/17 PATIENT IDENTIFICATION/HOSPITAL COURSE: 86-year-old male was admitted to the hospital because of upper abdominal pain. It began about three o'clock in the morning with nausea and vomiting plus diarrhea and persistent pain. It began initially in the right upper quadrant, the lower portion. It did radiate about 3 to 4 hours to the epigastric area. The patient also had some discomfort in the throat similar to reflux. The patient was seen at the office and was found to have tenderness in the epigastric area. There was some tenderness also in the right and left upper quadrant. The patient's initial lab consisting of hematology plus chemistry showed mild anemia, hemoglobin 12.2, hematocrit 37.2. Electrolytes were normal. BUN 23, creatinine 1.16, GFR estimated 60. The patient the next day had a CBC showing hemoglobin 13.1, hematocrit 39.9, platelet count 133,000, BUN 16, creatinine 1.19, estimated GFR 58. The patient was given intravenous fluids late in the evening of 10/07/17. Blood drawn was less than 12 hours from the initiation of the IV. CT scan of the abdomen was done without contrast, partially calcified pleural plaque in the right hemidiaphragm, atherosclerotic disease, the aorta and distal vessel. Layering stones or sludge in the dependent portion of the gallbladder. The liver had a nodular appearance. The spleen, pancreas and renals were normal. Hypodensities in the left kidney, not characterized well without contrast. No hydronephrosis, hydroureter or nephrolithiasis. Moderately sized right inguinal bowel containing hernia. Bladder appears grossly normal. No inflammatory changes in the abdomen or pelvic fat. No intraabdominal free air or pelvic free fluid. No suspicious appearing osteoblastic or osteolytic lesions. Diverticulosis without diverticulitis. The patient, on the following day claimed that the pain has resolved. He was given protonix 40 mg intravenously every 12 hours. He was continued on some of his medications including Pradaxa. The patient was given clear liquids on admission until noon of the next day and was then transitioned to a regular diet on the evening of 10/06/17. The patient remained afebrile throughout his hospital stay and his blood pressure was initially elevated and had returned toward normal but were punctuated with variable blood pressure readings. It was slightly elevated to normal. The patient, on the day of discharge was alert, ambulatory without any abdominal pain. His temperature was 97 orally, pulse 86 , BP 158/84, respiratory rate 16, oxygen saturation 98 on room air. CBC showed a decreased hemoglobin from 13.1 to 11.7, hematocrit from 39.9 to 35.2. Potassium slightly lower from 3.7 to 3.3. His BUN is 14, creatinine 1.06, now within normal. EGFR is 66. Decrease in hemoglobin and hematocrit may be due to hemodilution since the patient is receiving intravenous fluids and also eating and drinking. Stool is darker in color but he had been on Ferrous Sulfate before admission. A hemoccult however tested positive. The patient does not have any tracie bloody stool. The patient is alert, ambulatory with no pain. Lungs were clear to auscultation although slightly diminished. Heart is slightly irregular. The patient was advised to resume all of his medications. He was prescribed Protonix 40 mg tablet to be taken twice a day before breakfast and before supper for the next 5 days and then reduced to one a day before supper. He was prescribed 30 tablets. He is to see me this coming Sunday and before if he has some concerns or problems. The patient's total bilirubin had been rising and it was 2.4 on and 1.6 on 10/07/17. This patient was noted to have a nodular liver. The AST and ALT however remain normal as well as the alkaline phosphatase. Electrocardiogram does show atrial fibrillation which he has and that is the reason why he is on Pradaxa. FINAL DIAGNOSES: 1. Upper abdominal pain, probably peptic ulcer disease, improved, pain resolved. 2. Cholelithiasis without evidence of cholecystitis. 3. Atrial fibrillation on medication. 4. Moderate anemia. 5. History of prostatic carcinoma and intermittent muscular spasm mostly lower extremities. TIME SPENT: GREATER THAN 30 MINUTES MTDD
== END 2017-10-07 16:55 | disposition home or self-care (01) ==
LOC: MEDSURG A 17:01
PROVIDERS: ADMIT General Practice; ATTEND General Practice
DX: R10.13 Epigastric pain (principal); K80.20 Calculus of gallbladder without cholecystitis without obstruction; I48.91 Unspecified atrial fibrillation; Z79.01 Long term (current) use of anticoagulants; D64.9 Anemia, unspecified; Z85.46 Personal history of malignant neoplasm of prostate; M62.838 Other muscle spasm; I27.20 Pulmonary hypertension, unspecified; R11.2 Nausea with vomiting, unspecified; R19.7 Diarrhea, unspecified
CPT/HCPCS: 36415; 80053; 82272; 85025; 93005; 93010

== ENCOUNTER 2017-10-05 18:04 | Outpatient (CLI) ==
[2012-08-21 10:30] VITALS: TEMP 97.3
[2017-10-05 17:32] VITALS: BMI 23.7
== END 2017-10-05 18:05 | disposition home or self-care (01) ==
LOC: FCC-LAB 18:04
PROVIDERS: ATTEND General Practice
DX: R10.13 Epigastric pain (principal); R19.7 Diarrhea, unspecified; R11.10 Vomiting, unspecified
CPT/HCPCS: 36415; 80053; 81001; 82150; 83690; 84484; 85025

== ENCOUNTER 2017-10-09 13:34 | Outpatient (CLI) ==
[2012-08-21 10:30] VITALS: TEMP 97.3
== END 2017-10-09 13:35 | disposition home or self-care (01) ==
LOC: FCC-LAB 13:34
PROVIDERS: ATTEND General Practice
DX: R10.9 Unspecified abdominal pain (principal)
CPT/HCPCS: 36415; 85025

== ENCOUNTER 2018-01-22 15:06 | Outpatient (CLI) ==
[2012-08-21 10:30] VITALS: TEMP 97.3
--- NOTE | 2018-01-22 16:00 | US ---
EXAM: Right upper quadrant abdominal ultrasound. History: Liver mass. Comparison: CT abdomen pelvis 10/05/2017 Technique: Multiple sonographic images through the abdomen were obtained. Color duplex Doppler was used to interrogate vascular flow. Findings: The liver echotexture is coarsened. No focal liver lesions identified sonographically. There is ant egrade flow within the main portal vein. The visualized pancreas demonstrates no gross abnormality. No abdominal ascites. Limited visualization of the right kidney demonstrates no evidence for hydron ephrosis. Cholelithiasis. No gallbladder wall thickening. Common bile duct measures 0.4 cm in jacque clementine. Impression: 1. Cirrhotic appearance of the liver. 2. No focal liver lesions identified sonographically. If there is concern for a liver mass in a pat ient with cirrhosis, an MRI of the liver is a better examination to identify the liver mass. 3. Cholelithiasis
== END 2018-01-22 15:07 | disposition home or self-care (01) ==
LOC: RAD 15:06
PROVIDERS: ATTEND General Practice
DX: R16.0 Hepatomegaly, not elsewhere classified (principal)

== ENCOUNTER 2018-01-25 09:17 | Outpatient (CLI) ==
[2012-08-21 10:30] VITALS: TEMP 97.3
== END 2018-01-25 09:18 | disposition home or self-care (01) ==
LOC: RHC-LAB 09:17
PROVIDERS: ATTEND General Practice
DX: R16.0 Hepatomegaly, not elsewhere classified (principal)
CPT/HCPCS: 36415; 82565

== ENCOUNTER 2018-04-13 21:27 | Emergency (ER) ==
[2018-04-13 21:39] VITALS: BP 125/66; TEMP 98.2
[2018-04-13 21:51] VITALS: BMI 25.5
[2018-04-13] MEDS ORDERED: LASIX IVP STA (22:02)
--- NOTE | 2018-04-13 22:02 | ED.PDOC ---
General ED Provider: Dr. MICA QUINONEZ Chief Complaint: Extremity Pain/Injury Stated Complaint: patient complains of increased weight and wheeping legs has been taking lasix as prescribed 40mg daily. Last Apt with PCP was over a month ago. Has gained about 10 pounds in the last few months. Time Seen by Physician: 21:30 Mode of Arrival: Walk-In Information Source: Patient, Family Exam Limitations: No limitations [facility] and Triage Documentation Reviewed and Agree: Yes Does patient meet sepsis criteria?: No System Inflammatory Response Syndrome: Not Applicable Sepsis Protocol: For patient's 13 years and over: Temp is 96.8 and below OR 101 and greater Pulse >90 BPM Resp >20/minute Acutely Altered Mental Status Are patient's symptoms suggestive of a new infection, such as: -Pneumonia -Skin, Soft Tissue -Endocarditis -UTI -Bone, Joint Infection -Implantable Device -Acute Abdominal Infection -Wound Infection -Meningitis -Blood Stream Catheter Infection -Unknown Review of Systems - Review Of Systems Constitutional: Reports: No symptoms Eyes: Reports: No symptoms Ears, Nose, Mouth, Throat: Reports: No symptoms Respiratory: Reports: No symptoms Cardiac: Reports: No symptoms GI: Reports: No symptoms : Reports: No symptoms Musculoskeletal: Reports: Joint swelling Skin: Reports: No symptoms Neurological: Reports: No symptoms Endocrine: Reports: No symptoms Hematologic/Lymphatic: Reports: No symptoms All Other Systems: Reviewed and Negative Past Medical History - Past Medical History Previously Healthy: No Endocrine: Reports: None Cardiovascular: Reports: Hypertension, A-Fib Respiratory: Reports: None Hematological: Reports: None Gastrointestinal: Reports: None Genitourinary: Reports: Other (BPH) Neuro/Psych: Reports: None Musculoskeletal: Reports: None Cancer: Reports: None - Surgical History General Surgical History: Reports: Other (URETEROSCOPE, TURP) - Family History Family History: Reports: Unknown - Social History Smoking Status: Former smoker Hx Substance Use: No Alcohol Screening: None - Immunizations Tetanus Shot up to Date: (UNKNOWN) Influenza Vaccine within 12 Months: No Pneumococcal Vaccine up to Date: No Physical Exam - Physical Exam Appearance: Well-appearing, No pain distress, Well-nourished Eyes: ADRIEL, EOMI, Conjunctiva clear ENT: Ears normal, Nose normal, Oropharynx normal Respiratory: Airway patent, Breath sounds clear, Breath sounds equal, Respirations nonlabored Cardiovascular: RRR, Pulses normal, No rub, No murmur GI/: Soft, Nontender, No masses, Bowel sounds normal, No Organomegaly Musculoskeletal: Normal strength, ROM intact, No calf tenderness, Edema (lower ext ) Skin: Warm, Dry, Normal color (clear fluid draining from few sports on the left arizmendi ( from edema)) Neurological: Sensation intact, Motor intact, Reflexes intact, Cranial nerves intact, Alert, Oriented Psychiatric: Affect appropriate, Mood appropriate Critical Care Note - Critical Care Note Total Time (mins): 30 Course - Course Hematology/Chemistry: 04/13/18 22:05 04/13/18 22:05 Orders, Labs, Meds: Lab Review 04/13/18 04/13/18 22:05 22:05 WBC 6.41 RBC 3.64 L Hgb 10.6 L Hct 33.4 L MCV 91.8 MCH 29.1 MCHC 31.7 L RDW Coeff of Le 15.0 H Plt Count 152 Immature Gran % (Auto) 0.3 Neut % (Auto) 57.7 Lymph % (Auto) 27.6 Pacific % (Auto) 9.0 Eos % (Auto) 4.8 Baso % (Auto) 0.6 Immature Gran # (Auto) 0.0 Neut # (Auto) 3.7 Lymph # (Auto) 1.8 Pacific # (Auto) 0.6 Eos # (Auto) 0.3 Baso # (Auto) 0.0 Sodium 141.0 Potassium 4.20 Chloride 104.0 Carbon Dioxide 29.0 Anion Gap 12.20 BUN 24.0 H Creatinine 1.30 H Estimated GFR (MDRD) 52.00 BUN/Creatinine Ratio 18.46 Glucose 119.0 H Calcium 9.20 Magnesium 2.17 Total Bilirubin 1.00 AST 37.0 ALT 15.1 Alkaline Phosphatase 74.0 Total Protein 7.60 Albumin 4.10 Globulin 3.50 Albumin/Globulin Ratio 1.17 Orders Category Date Time Status ED IV/MEDIPORT/POWERPORT .ONCE EMERGENCY 04/13/18 22:02 Active CBC W/ AUTO DIFF Stat LAB 04/13/18 22:05 Completed COMPREHENSIVE METABOLIC PANEL Stat LAB 04/13/18 22:05 Completed MAGNESIUM Stat LAB 04/13/18 22:05 Completed 0.9 % Sodium Chloride [Saline Flush] MEDS 04/13/18 22:02 Discontinued 1 syr IVF PRN PRN Furosemide [Lasix] MEDS 04/13/18 22:02 Discontinued 20 mg IVP ONCE STA Medications Discontinued Medications Generic Name Dose Route Start Last Admin Trade Name Juan PRN Reason Stop Dose Admin Furosemide 20 mg 04/13/18 22:02 04/13/18 22:18 Lasix IVP 04/13/18 22:03 20 mg ONCE STA Administration Sodium Chloride 1 syr 04/13/18 22:02 04/13/18 22:21 Saline Flush IVF 1 syr PRN PRN Administration To flush IV Vital Signs: Temp Pulse Resp BP Pulse Ox 04/13/18 21:27 98.2 F 78 16 125/66 100 NEELIMA Risk Score Age >/= 65: Yes >/= 3 CAD Risk Factors: No Known CAD (Stenosis >/= 50%): No ASA Use in Past 7 Days: No Severe Angina (>/= 2 episodes in 24 hours): No EKG ST Changes >/= 0.5mm: No Postive Cardiac Marker: No NEELIMA Total Score: 1 NEELIMA Risk Score: Risk Score Odds of by 30D 0 0.1 (0.1-0.2) 1 0.3 (0.2-0.3) 2 0.4 (0.3-0.5) 3 0.7 (0.6-0.9) 4 1.2 (1.0-1.5) 5 2.2 (1.9-2.6) 6 3.0 (2.5-3.6) 7 4.8 (3.8-6.1) Departure - Departure Time of Disposition: 23:25 Disposition: HOME SELF-CARE Discharge Problem: Edema of lower extremity Instructions: Leg Edema (ED) Condition: Fair Pt referred to PMD for follow-up: Yes IPMP verified?: No Additional Instructions: Take two tablets of lasix everyday for 3 days. Call your PCP in the morning. Also take an extran Potassium every day for 3 days. Weight yourself daily Resume previous Dose of lasix and Potassium after 3 days if you have not seen your PCP Avoid Salty or processed food. Keep Legs elevated. Find proper fitting TEDS stockings and iniguez then daily on in the day and off at night. keep areas of weeping clean cover with 2 x 2 and bandage Allergies/Adverse Reactions: Allergies diclofenac sodium [From Voltaren] Adverse Reaction (Verified 04/13/18 21:39) Penicillins Adverse Reaction (Verified 04/13/18 21:39) Home Medications: Ambulatory Orders Famotidine [Pepcid AC] 20 mg PO DAILY 08/21/12 Finasteride [Proscar] 5 mg PO DAILY 08/21/12 Glucosam/Chond/Collagen/Hyalur [Glucosamine Chondroitin Cap] 1 each PO DAILY 07/29 Leg Cramps 1 tab PO BEDTIME 12/04/14 Loratadine 10 mg PO DAILY #30 tab-cap 12/06/15 Calcium Citrate/Vitamin D3 [Citracal + D Maximum Caplet] 1 tab PO DAILY Potassium Chloride [K-Dur] 20 meq PO DAILY 03/11/16 Ketorolac Tromethamine [Acular Ls] 1 drop RIGHTEYE TID 10/05/17 Ofloxacin 0.3% Opth Joan [Ocuflox 0.3% Opth Joan] 1 drop RIGHTEYE TID 10/05/17 Prednisolone Opth Susp [Pred Forte 1%] 1 drop RIGHTEYE TID 10/05/17 Mag Hydrox/Aluminum Hyd/Simeth [Antacid Anti-Gas Liquid] 5 ml PO DAILY #335 ml 10/09/17 Atenolol 25 mg PO DAILY tab-cap 11/22/17 Disposition Discussed With: Patient, Family
== END 2018-04-13 23:42 | disposition home or self-care (01) ==
LOC: ED 21:27
DX: R60.0 Localized edema (principal); R63.5 Abnormal weight gain; R52 Pain, unspecified; Z79.899 Other long term (current) drug therapy
CPT/HCPCS: 36415; 80053; 83735; 85025; 96374; 99283

== ENCOUNTER 2018-04-16 11:31 | Outpatient (CLI) ==
[2012-08-21 10:30] VITALS: TEMP 97.3
--- NOTE | 2018-04-16 12:31 | US ---
EXAM: Ultrasound venous Doppler left lower extermity HISTORY: Swelling and pain COMPARISON: None TECHNIQUE: Venous duplex ultrasound of the left lower extremity was performed using color, alicea-scal e, and Doppler flow imaging. FINDINGS: There is normal color flow and compression of the left common femoral, greater saphenous, profunda femoral, femoral, popliteal, peroneal, posterior tibial, and anterior tibial veins without e vidence of intraluminal thrombus. IMPRESSION: No left lower extremity deep venous thrombosis.
== END 2018-04-16 11:32 | disposition home or self-care (01) ==
LOC: RAD 11:31
PROVIDERS: ATTEND General Practice
DX: M79.605 Pain in left leg (principal); M79.89 Other specified soft tissue disorders; I50.9 Heart failure, unspecified; D64.9 Anemia, unspecified; I65.21 Occlusion and stenosis of right carotid artery
CPT/HCPCS: 36415; 83880

== ENCOUNTER 2018-07-31 20:57 | Emergency (ER) ==
[2018-07-31 21:07] VITALS: BP 149/71; TEMP 98.3; BMI 24.3
--- NOTE | 2018-07-31 21:38 | ED.PDOC ---
General ED Provider: Dr. MICA QUINONEZ Chief Complaint: Hip Pain/Injury Stated Complaint: Patient is an 87 year old male with left hip pain that started today. Has pain only with weight bearing. None at rest. Denies any Trauma. Time Seen by Physician: 21:35 Mode of Arrival: Wheelchair Information Source: Patient [facility] and T[facility] Documentation Reviewed and Agree: Yes Does patient meet sepsis criteria?: No System Inflammatory Response Syndrome: Not Applicable Sepsis Protocol: For patient's 13 years and over: Temp is 96.8 and below OR 101 and greater Pulse >90 BPM Resp >20/minute Acutely Altered Mental Status Are patient's symptoms suggestive of a new infection, such as: -Pneumonia -Skin, Soft Tissue -Endocarditis -UTI -Bone, Joint Infection -Implantable Device -Acute Abdominal Infection -Wound Infection -Meningitis -Blood Stream Catheter Infection -Unknown Musculoskeletal Complaint Exam - Hip/Pelvis Complaint/Exam Location of Pain: Reports: Left Mechanism of Injury: Reports: No known trauma Onset/Duration: 1 day Initial Severity: Mild Current Severity: Moderate (but not when resting) Location: Reports: Diffuse Character: Reports: Aching Aggravating: Reports: Movement, Weight bearing Alleviating: Reports: Rest Associated Signs and Symptoms: Denies: Swelling, Redness, Bruising, Fever, Weakness, Dizziness, Syncope, Abdominal pain, Knee pain Able to Bear Weight: Yes Septic Arthritis Risk Factors: Reports: Extremes of age. Denies: IV drug abuse , Endocarditis, Imunosuppressed, Preexisting joint disease, Prosthesis Related Surgical History: Reports: None Pelvis Palpation: Stable Hip/Pelvis Findings: Absent: Extremity shortened, Swelling, Ecchymosis, Erythema , Warmth, Blisters Tenderness: Absent: Right, Left, PSIS, ASIS, Greater Trochanter, Pubis, Ischium Range of Motion Limited In: Absent: Flexion, Extension, Abduction, Adduction, Internal rotation, External rotation NV Bundle Intact Distal to Injury: No Differential Diagnoses: Sprain, Strain Review of Systems - Review Of Systems Constitutional: Reports: No symptoms Eyes: Reports: No symptoms Ears, Nose, Mouth, Throat: Reports: No symptoms Respiratory: Reports: No symptoms Cardiac: Reports: No symptoms GI: Reports: No symptoms : Reports: No symptoms Musculoskeletal: Reports: Joint pain (left hip pain with walking ) Skin: Reports: No symptoms Neurological: Reports: No symptoms Endocrine: Reports: No symptoms Hematologic/Lymphatic: Reports: No symptoms All Other Systems: Reviewed and Negative Past Medical History - Past Medical History Previously Healthy: No Endocrine: Reports: None Cardiovascular: Reports: Hypertension, CHF, A-Fib Respiratory: Reports: None Hematological: Reports: None Gastrointestinal: Reports: GERD Genitourinary: Reports: Other (BPH) Neuro/Psych: Reports: None Musculoskeletal: Reports: None, Arthritis Cancer: Reports: None Other Pertinent Past Medical History: 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 - Surgical History General Surgical History: Reports: Other (URETEROSCOPE, TURP) - Family History Family History: Reports: Unknown - Social History Smoking Status: Former smoker Hx Substance Use: No Alcohol Screening: None - Immunizations Tetanus Shot up to Date: (UNKNOWN) Influenza Vaccine within 12 Months: No Pneumococcal Vaccine up to Date: No Physical Exam - Physical Exam Appearance: Well-appearing Ill-appearing: None Neck: Supple Respiratory: Airway patent, Breath sounds clear, Breath sounds equal, Respirations nonlabored Cardiovascular: RRR, Pulses normal, No rub, No murmur Musculoskeletal: ROM intact, No edema Skin: Warm Neurological: Alert Psychiatric: Anxious Interpretation - Radiology Interpretation Radiology Interpretation By: Radiologist Radiology Results: No acute changes Critical Care Note - Critical Care Note Total Time (mins): 0 Course - Course Orders, Labs, Meds: Orders Category Date Time Status Acetaminophen [Tylenol] MEDS 07/31/18 21:35 Discontinued 1,000 mg PO ONCE STA PELVIS & CHEN HIPS Stat RADS 07/31/18 21:34 Completed Medications Discontinued Medications Generic Name Dose Route Start Last Admin Trade Name Freq PRN Reason Stop Dose Admin Acetaminophen 1,000 mg 07/31/18 21:35 07/31/18 21:42 Tylenol PO 07/31/18 21:36 1,000 mg ONCE STA Administration Vital Signs: Temp Pulse Resp BP Pulse Ox 07/31/18 20:57 98.3 F 70 18 149/71 H 96 Departure - Departure Time of Disposition: 22:02 Disposition: HOME SELF-CARE Discharge Problem: Hip pain Instructions: Hip Pain (ED) Condition: Good Pt referred to PMD for follow-up: Yes IPMP verified?: No Additional Instructions: Take Tylenol as needed for pain Follow up with PCP in 3 days Allergies/Adverse Reactions: Allergies diclofenac sodium [From Voltaren] Adverse Reaction (Verified 07/31/18 21:07) Unknown Penicillins Adverse Reaction (Verified 07/31/18 21:07) Unknown Home Medications: Ambulatory Orders Finasteride [Proscar] 5 mg PO DAILY 08/21/12 Glucosam/Chond/Collagen/Hyalur [Glucosamine Chondroitin Cap] 1 each PO DAILY 07/29 Leg Cramps 1 tab PO BEDTIME 12/04/14 Loratadine 10 mg PO DAILY #30 tab-cap 12/06/15 Calcium Citrate/Vitamin D3 [Citracal + D Maximum Caplet] 1 tab PO DAILY Potassium Chloride [K-Dur] 20 meq PO DAILY 03/11/16 Atenolol 12.5 mg PO DAILY 04/16/18 Disposition Discussed With: Patient, Family
[2018-07-31] MEDS: TYLENOL PO STA (21:42)
--- NOTE | 2018-07-31 22:12 | DI ---
EXAM: Single-view pelvis and single view bilateral hips HISTORY: Left hip pain COMPARISON: None. FINDINGS: There is mild generalized osteopenia.. Degenerative changes are noted about both hip join ts. There is no acute fracture or bony destruction. Several air collections are seen inferior to th e inferior pubic ramus on the right compatible with a right inguinal hernia. IMPRESSION: Osteopenia degenerative changes without acute findings. Right inguinal hernia
== END 2018-07-31 22:15 | disposition home or self-care (01) ==
LOC: ED 20:57
DX: M25.552 Pain in left hip (principal); F41.9 Anxiety disorder, unspecified
CPT/HCPCS: 99282

== ENCOUNTER 2018-08-27 13:38 | Outpatient (CLI) ==
[2012-08-21 10:30] VITALS: TEMP 97.3
--- NOTE | 2018-08-27 17:15 | MRI ---
EXAM: MRI of the left hip without contrast COMPARISON: Pelvis/hip radiographs 07/31/2018. MRI of the abdomen 02/21/2018. CT of the abdomen an d pelvis 10/05/2017. Left lower extremity venous Doppler 04/16/2018. MRI of the lumbar spine 2014. HISTORY: Left hip pain. No known injury. TECHNIQUE: Multiplanar noncontrast MR images of the pelvis/hips were acquired using a 1.5 Liliana magn et. Large field of view imaging was employed on the axial coronal sequences with inclusion both righ t and left hips in the field of view. Sagittal images were obtained only through the left hip. FINDINGS: There is marked marrow edema with inversion recovery hyperintense/T1 hypointense signal ex tending throughout the left acetabulum most extensive superiorly, posteriorly and medially. There is linear inversion recovery hypointense signal extending through the acetabulum at this level, favorin g an insufficiency fracture with subchondral component with periosteal edema and adjacent muscle catrina a at that site. Underlying marrow infiltrating process/metastatic disease is considered less likely given the identification of a focal linear fracture line at that site. Overlying edema is most prono unced involving the gluteus minimus and medius muscles as well as a adjacent left iliacus. Moderate degenerative changes of the hips bilaterally with small hip joint effusions, more pronounced on the l eft. Degenerative spurring of the pubic symphysis. Degenerative spurring of the sacroiliac joints w ithout evidence of active sacroiliitis or ankylosis. Intervertebral disc desiccation intervertebral disc space narrowing throughout the visualized portions of the lower lumbar spine with bilateral face t hypertrophy. There is diffuse muscle atrophy. Hamstring tendinosis bilaterally with low grade partial tear of the left common hamstring tendon at its ischial tuberosity attachment. Gluteus minimus tendinosis enthe sopathy bilaterally. There is a fat-containing left inguinal hernia. There is a right inguinal hernia containing fat as w ell as loops of bowel without definite evidence of bowel obstruction. Colonic diverticulosis without definite evidence of acute diverticulitis. No pathologically enlarged intrapelvic lymph nodes. Sma ll hydroceles. IMPRESSION: 1. Marked marrow edema throughout the left acetabulum with insufficiency fracture at that level as w ell as periosteal edema and overlying muscle edema. Underlying marrow infiltrating process is consid ered less likely though short-term follow-up MRI is recommended in order to document healing and reso lution of signal changes at that site. Whole-body bone scan could be considered in a high risk patie nt (known primary malignancy). 2. Degenerative changes of the lumbar spine, hips, pubic symphysis and sacroiliac joints. 3. Hip effusions bilaterally, more pronounced on the left. 4. Hamstring tendinosis bilaterally with low grade partial tear of the left common hamstring tendon. Gluteus minimus tendinosis and enthesopathy bilaterally. Intramuscular edema involving the left hi p girdle musculature adjacent to the acetabular fracture. 5. Small hydroceles. 6. Right inguinal hernia containing fat and loops of bowel without definite evidence of bowel obstru ction. Fat containing left inguinal hernia. Colonic diverticulosis without evidence of acute divert iculitis.
== END 2018-08-27 13:39 | disposition home or self-care (01) ==
LOC: RAD 13:38
PROVIDERS: ATTEND General Practice
DX: M51.27 Other intervertebral disc displacement, lumbosacral region (principal); M47.816 Spondylosis without myelopathy or radiculopathy, lumbar region; M25.552 Pain in left hip

== ENCOUNTER 2018-08-29 12:12 | Outpatient (CLI) ==
[2012-08-21 10:30] VITALS: TEMP 97.3
== END 2018-08-29 12:13 | disposition home or self-care (01) ==
LOC: RHC-LAB 12:12
PROVIDERS: ATTEND General Practice
DX: M25.552 Pain in left hip (principal); M51.27 Other intervertebral disc displacement, lumbosacral region; M47.816 Spondylosis without myelopathy or radiculopathy, lumbar region; R53.83 Other fatigue; M25.50 Pain in unspecified joint; Z79.899 Other long term (current) drug therapy; M81.0 Age-related osteoporosis without current pathological fracture
CPT/HCPCS: 36415; 82306

== ENCOUNTER 2018-09-04 12:37 | Outpatient (CLI) ==
[2012-08-21 10:30] VITALS: TEMP 97.3
--- NOTE | 2018-09-04 14:34 | DEXA ---
EXAM: Bone densitometry. History: Postmenopausal osteopenia. Findings: Evaluation of the lumbar spine reveals a total bone mineral density of 0.947 grams per centimeter squ ared with T-score of negative 2.3. Evaluation of the left hip reveals a total bone mineral density of 0.578 grams per centimeter squared with T-score of negative 3.6. Evaluation of the right hip reveals a total bone mineral density of 0.615 grams per centimeter square d with T-score of negative 3.4. FRAX: 10-year probability for major osteoporotic fracture is 14.5% and 8.2% for hip fracture. Impression: 1. Osteopenia of the lumbar spine. 2. Osteoporosis of bilateral hips
== END 2018-09-04 12:38 | disposition home or self-care (01) ==
LOC: RAD 12:37
PROVIDERS: ATTEND General Practice
DX: M81.0 Age-related osteoporosis without current pathological fracture (principal); M85.89 Other specified disorders of bone density and structure, multiple sites

== ENCOUNTER 2018-10-30 15:40 | Observation (INO) ==
[2018-10-30 16:27] VITALS: BMI 24.8
[2018-10-30] MEDS ORDERED: ACETAMINOPHEN PO PRN (19:19)
[2018-10-30] MEDS ORDERED: [UNRECOGNIZED DRUG - OTHER] PO PRN (19:19)
[2018-10-30] MEDS ORDERED: HYDROCODONE PO PRN (19:19)
[2018-10-30] MEDS ORDERED: NON-FORMULARY MEDICATION (Nitroglycerin [Nitroglycerin] 0.4 MG) SL PRN (19:22)
[2018-10-30] MEDS ORDERED: FINASTERIDE 5 MG PO SCH (21:00)
[2018-10-30] MEDS ORDERED: NON-FORMULARY MEDICATION (Ferrous Sulfate [Iron] 325 MG) PO SCH (21:00)
[2018-10-30] MEDS ORDERED: NON-FORMULARY MEDICATION (Simvastatin [Simvastatin] 20 MG) PO SCH (21:00)
[2018-10-30] MEDS ORDERED: NON-FORMULARY MEDICATION (Loratadine [Loratadine] 10 MG) PO SCH (21:00)
[2018-10-30] MEDS ORDERED: LATANOPROST OP SCH (21:00)
[2018-10-30] MEDS ORDERED: NON-FORMULARY MEDICATION (Dabigatran Etexilate Mesylate [Pradaxa] 150 MG) PO SCH (21:00)
[2018-10-30] MEDS ORDERED: CRAMPS PO SCH (21:15)
--- NOTE | 2018-10-31 07:05 | CT ---
EXAM: CT chest without contrast. HISTORY: Shortness of breath. Weakness. PROCEDURE: Contiguous axial CT images of the chest without contrast with coronal and sagittal reform ats. FINDINGS: The heart is within normal limits in size. The thoracic aorta is within normal limits in d iameter. There are atherosclerotic calcifications in the thoracic aorta. There are coronary artery calcifications. There are calcified mediastinal and hilar lymph nodes. There is minimal bibasilar d ependent atelectasis. There are calcified pleural plaques. There is a T11 compression fracture with approximately 50% loss of vertebral body height, age indeterminate. There is a chronic T8 compressi on fracture compared with prior exam of 11/22/2017. There are gallstones in the gallbladder. The ga llbladder is within normal limits in size. Impression: Minimal bibasilar dependent atelectasis. Calcified pleural plaques. Atherosclerotic vascular disease. Cholelithiasis. T11 compression fracture as described, age indeterminate. Chronic T8 compression fracture as described.
[2018-10-31] MEDS ORDERED: NON-FORMULARY MEDICATION (Dabigatran Etexilate Mesylate [Pradaxa] 150 MG) PO SCH (08:00)
[2018-10-31] MEDS ORDERED: NON-FORMULARY MEDICATION (Furosemide [Furosemide] 40 MG) PO SCH (09:00)
[2018-10-31] MEDS ORDERED: ATENOLOL 12.5 MG PO SCH (09:00)
[2018-10-31] MEDS ORDERED: CALCIUM CITRATE PO SCH (09:00)
[2018-10-31] MEDS ORDERED: [UNRECOGNIZED DRUG - MIXTURE] PO SCH (09:00)
[2018-10-31] MEDS ORDERED: NON-FORMULARY MEDICATION (Pantoprazole Sodium [Pantoprazole Sodium] 40 MG) PO SCH (09:00)
[2018-10-31] MEDS ORDERED: [UNRECOGNIZED DRUG - OTHER] PO SCH (09:00)
[2018-10-31] MEDS ORDERED: VITAMIN D3 PO SCH (09:00)
[2018-10-31] MEDS ORDERED: HYDROCODONE PO PRN (10:30)
[2018-10-31] MEDS ORDERED: ACETAMINOPHEN PO PRN (10:30)
[2018-10-31] MEDS ORDERED: [UNRECOGNIZED DRUG - OTHER] PO PRN (10:30)
[2018-10-31] MEDS ORDERED: NON-FORMULARY MEDICATION (Nitroglycerin [Nitroglycerin] 0.4 MG) SL PRN (10:30)
--- NOTE | 2018-10-31 13:32 | HP ---
DATE OF SERVICE: 10/30/18 REASON FOR HOSPITALIZATION: Increase in leg swelling and leaking to the lower extremities for the last several days and increase in shortness of breath especially with an appointment yesterday at GI. HISTORY OF PRESENT ILLNESS: Mr. Stern is a pleasant 87-year-old patient of Dr. Mcbride who presents to the office today for a two week followup appointment. He tells me today that he has had an increase in swelling to his lower extremities for the last several weeks. The swelling is to the point that he has had some open sores to his lower extremities. He has applied multiple bandaids to both bilateral lower extremities. The swelling is 2 to 3+ pitting edema from the knees to the ankles bilaterally. It is pitting bilaterally. Both lower extremities have multiple open sores. He does have bandaids in place to bilateral lower extremities. They are weeping to bilateral lower extremities. Both lower extremities are sore and tender when touched. He does have minimal redness to bilateral lower extremities. The weeping is clear. He does tell me that he has some shortness of breath over the last couple of days but prior to the last couple of days he has felt okay. The worse was yesterday when he was at a gastroenterology appointment and he had to walk a bit of a distance to get to his appointment. The son reports that he was notably short of breath and they had to make some stops from the car to the office several times to take a break and this is not like his Dad. PAST MEDICAL HISTORY: Atrial fibrillation which is chronic Benign positional vertigo Bilateral carotid bruits Bilateral inguinal hernias Cardiac arrhythmias Carpal tunnel syndrome Chronic kidney disease Dyslipidemia Elevated PSA Hearing loss Hypertension Intermittent claudication Liver mass Osteoarthritis Peripheral arterial disease Prediabetes Tinnitus PAST SURGICAL HISTORY: Lesion removed from his back 20+ years ago Transurethral resection of the prostate and bladder resection with cancer removed in October of 2016 Scraping of the left eye REVIEW OF SYSTEMS: CONSTITUTIONAL: No night sweats. No fatigue, malaise, lethargy. No fever or chills. HEENT: No reports of any headache or nasal drainage, sore throat or any sinus symptoms. CARDIOVASCULAR: He denies any complaints of chest pain. Denies any complaints of any orthopnea. He does complain of peripheral edema. This has been going on for several weeks. He does complain of a chronic atrial fibrillation and chronic irregular rhythm. He denies any palpitations. LUNGS: He has had some increase in shortness of breath. Denies any congestion. He does have elicit history of pulmonary hypertension. He does have a bit of a cough. GASTROINTESTINAL: No complaints of any abdominal pain. Denies any nausea or vomiting, diarrhea or constipation. No blood in stool or changes in stool consistency. GENITOURINARY: Denies any dysuria, hematuria, nocturia or urinary incontinence. MUSCULOSKELETAL: No reports of any muscle pain, joint redness or swelling or any history of musculoskeletal disorder. NEUROLOGICAL: He denies any complaints of any dizziness. No neurological deficits. PSYCHIATRIC: Denies any anxiety, depression or mood changes. No suicidal thoughts. No homicidal thoughts. SKIN: No rash. No lesions. No wounds. ENDOCRINE: He does not have a history of diabetes mellitus or thyroid disease. He does not have increased thirst, urination or heat or cold intolerance. INTEGUMENT: No reports of any rashes, lesions. He does have some open sores to his lower extrremities from the weeping of the increasing swelling. PERSONAL/FAMILY/SOCIAL HISTORY: Family history not listed. Social History - denies substance abuse or alcohol abuse. He is a former smoker, stopped at age 32. MEDICATIONS: (CURRENT HOME) Ferrous Sulfate 325 mg daily [place] 7.5/325 mg twice a day Pradaxa 150 mg tablet twice a day Protonix 40 mg daily Furosemide 40 mg daily Atenolol 25 mg 1/2 tablet daily Simvastatin 20 mg daily Citracal one tablet daily Loratadine 10 mg daily Leg cramp medication - (unsure of the name of this but he takes one tablet at bedtime. The son is to get the name of this and bring this to the nurses station for the nurses to review). Finasteride 5 mg daily Glucosamine Chondrointin one capsule daily ALLERGIES: DICLOFENAC, PENICILLIN PHYSICAL EXAMINATION: GENERAL: The patient is alert and oriented. He is pleasant. VITAL SIGNS: Stable. He is in no aucte distress. Height 70", weight 177 lbs, BMI 25.4, temperature 96.8, pulse 56, respirations 16, blood pressure 116/63, 02 sat 96% on room air. HEENT: Head normocephalic, atraumatic. Pupils are equal. Conjunctivae clear. Mucous membranes are moist. HEART: He does have an irregular rhythm, irregular rate. No JVD. He does have 2 to 3+ pitting edema to the lower extremity. He does have some open sores. He has multiple bandaids to bilateral lower extremity. There is some minimal redness to bilateral lower extremity. The pitting edema is from just below the knee to the ankles bilaterally. LUNGS: Diminished. He does have some rales to bilateral bases. ABDOMEN: Soft. Nontender. Bowel sounds active. No tenderness, rebound tenderness or rigidity. No mass felt. EXTREMITIES: No edema. Full range of motion of all extremities, equal. NEUROLOGIC: No overt neurological deficits noted. SKIN: Warm and dry. There are no overt lesions. He does have some sores to the bilateral lower extremity. LABS AND DIAGNOSTIC TESTING: These were done on 10/03/18. Reviewed. White count normal, hemoglobin 11.3, hematocrit 36.0, platelet count 145. His BNP was 1,090. His sodium 140.9, BUN 22.0, creatinine 1.09. He had a CT scan of the abdomen and pelvis that was scanned in from 09/17/18 done at [facility]. This was reviewed with Gastroenterology and did show 1.4 cm lesion in the left hepatic lobe lateral segment, appears to be stable in size but is not seen as well on the current study due to the phase of injection. There is a small hepatocellular carcinoma in the differential diagnosis for this lesion given the presence of cirrhosis and it says this was seen on a previous study to enhance intensely on the arterial phase sequence and there are no new liver lesions noted. This will be reviewed with Dr. Mcbride with the most previous CT scans. ASSESSMENT: 1. ACUTE ON CHRONIC CONGESTIVE HEART FAILURE UNSPECIFIED HEART FAILURE TYPE. 2. WEIGHT GAIN OF 7 LBS WITH BILATERAL LOWER EXTREMITY SWELLING AND EDEMA WITH OPEN AREAS TO LOWER EXTREMITIES. 3. BILATERAL RALES. 4. HYPERTENSION. 5. HYPERLIPIDEMIA. 6. CHRONIC ATRIAL FIBRILLATION. 7. HISTORY OF CHRONIC KIDNEY DISEASE. 8. LIVER MASS, WILL REVIEW RECENT CT SCAN WELL THE MOST RECENT CT SCAN PRIOR TO THIS FOR COMPARISON. 9. PERIPHERAL ARTERIAL DISEASE. 10. HISTORY OF PRE DIABETES. PLAN: Admit the patient to observation. We will obtain labs, chest x-ray, EKG, cardiac markers, urinalysis, NT-Pro-BNP, repeat as well as troponin. Further orders and recommendations per Dr. Mcbride. Will wait to see what labs and testing come back before ordering medications. TIME SPENT: More than 70 minutes. ISMAEL
[2018-10-31] MEDS: NON-FORMULARY MEDICATION (Dabigatran Etexilate Mesylate [Pradaxa] 150 MG) PO SCH (16:59)
[2018-10-31] MEDS ORDERED: CRAMPS PO SCH ×3 (21:00)
[2018-10-31] MEDS ORDERED: NON-FORMULARY MEDICATION (Loratadine [Loratadine] 10 MG) PO SCH (21:00)
[2018-10-31] MEDS ORDERED: NON-FORMULARY MEDICATION (Simvastatin [Simvastatin] 20 MG) PO SCH (21:00)
[2018-10-31] MEDS ORDERED: NON-FORMULARY MEDICATION (Ferrous Sulfate [Iron] 325 MG) PO SCH (21:00)
[2018-10-31] MEDS ORDERED: LATANOPROST OP SCH (21:00)
[2018-10-31] MEDS ORDERED: FINASTERIDE 5 MG PO SCH (21:00)
[2018-11-01] MEDS ORDERED: NON-FORMULARY MEDICATION (Furosemide [Furosemide] 40 MG) PO SCH (06:30)
[2018-11-01] MEDS ORDERED: NON-FORMULARY MEDICATION (Pantoprazole Sodium [Pantoprazole Sodium] 40 MG) PO SCH (06:30)
[2018-11-01] MEDS: NON-FORMULARY MEDICATION (Dabigatran Etexilate Mesylate [Pradaxa] 150 MG) PO SCH ×2 (08:38→16:56)
[2018-11-01] MEDS ORDERED: [UNRECOGNIZED DRUG - MIXTURE] PO SCH (09:00)
[2018-11-01] MEDS ORDERED: [UNRECOGNIZED DRUG - OTHER] PO SCH (09:00)
[2018-11-01] MEDS ORDERED: ATENOLOL 12.5 MG PO SCH (09:00)
[2018-11-01] MEDS ORDERED: VITAMIN D3 PO SCH (09:00)
[2018-11-01] MEDS ORDERED: CALCIUM CITRATE PO SCH (09:00)
[2018-11-01] MEDS ORDERED: ENTRESTO 24 MG-26 MG TABLET PO SCH (13:30)
[2018-11-01 13:35] VITALS: BP 100/60; TEMP 97.5
[2018-11-01] MEDS: DOXYCYCLINE HYCLATE PO SCH ×2 (17:22→17:46)
--- NOTE | 2018-11-04 11:34 | DS ---
DATE OF SERVICE: 11/01/18 PATIENT IDENTIFICATION: 87 year old male was seen at the office on the day admission for two weeks followup. The patient had been experiencing increasing shortness of breath and he has to stop several times to take in air from the parking lot to the office waiting room. The distance is probably able 50 feet. He also had gained 7 pounds since the last visit. His legs are markedly edematous with vesicles and some of the vesicles that had ruptured has crusted with some surrounding redness and some drainage. His significant past history consisted of atrial fibrillation on anti-coagulation, bladder carcinoma operated, hypertension, intermittent claudication due to peripheral arterial disease, elevated PSA, hearing loss, bilateral carotid bruit. Other medical problems probably not contributory to the present problem. The patient is alert, pale and oriented. His is not dyspneic or tachypneic at rest. LUNGS: Diminished breath sounds in both sides with bilateral basal moist rales. HEART: Audible and irregular, not tachycardic and no murmurs. The patient has bilateral carotid bruit. ABDOMEN: Soft, nontender. No masses, no bruit. EXTREMITY: Marked edema on both legs extending from the knee down to the foot with vesicular eruptions and some eruptions had drained has some redness and some drainage. The culture was done showing staph aureus. The patient's work up consisted of 3 CBC's showing normal WBC, moderate anemia. HGB ranging from 9.9 to 10.2, hct ranging from 30.9 to 32.1. Plt count is normal 156 to 160, RDW slightly elevated 16.5 to 16.7. The patient had a series of CMP times three showing normal electrolytes closed to normal. Elevated BUN 25.4, creatinine 1.27, EGFR 54. NT PRO BNP 963 did rise to 1,370 and back to 1,400 on the day of discharge. Urinalysis was normal. CT scan of the chest because of the shortness of breath showed minimal bibasilar dependant atelectasis, calcified pleural plaques, atherosclerotic vascular disease, cholelithiasis, T11 compression fracture, maybe subacute and chronic T 8 compression fracture. The patient's vital signs; temperature remained normal throughout the hospital stay, blood pressure had fluctuated between 104/60 to 155/93. His appetite is fair to good consuming between 50 to 100% of the meals. The patient had been stable and appetite remained fairly well consuming 50-100% of his meals. He was not dyspneic or tachypneic. The leg swelling is less and no vesicular formations were noted. The ulceration did grow staph aureus sensitive to host a medications including Penicillin. This patient however is allergic to penicillin and so Bactrim was elevated. He didn't have any reaction while he was in the hospital. This patient is allergic to Diclofenac. The patient also was given a dose in the hospital consisting of Entresto 24-26mg to be taken one table twice a day at home. The patient at the time of discharge was alert, ambulatory with movement of all extremities. He denies any pain in both legs. VITAL SIGNS: Temperature 97.5, pulse 62, blood pressure 100/60, respiratory rate 16, oxygen saturation 96 at room air. LUNGS: He still does have rales on both bases slightly more on the left. The left also has some diminished breath sounds more than the right but no wheezing. HEART: Audible and irregular but not tachycardiac ABDOMEN: Soft, nontender. Bowel sounds are active. EXTREMITIES: Ulcerations in both right and left leg has improved and the redness is much smaller and shirt turner. FINAL DIAGNOSES: 1. Congestive heart failure 2. Severe bilateral leg edema without vesicular eruptions. This patient had Doppler studies a few months ago and was negative for any venous thrombosis. The patient also had pain in the left hip and that was due to a fracture of the acetabulum, insufficiency. He was seen by an orthopedic surgeon and recommended no surgical intervention. That pain has subsided in intensity. 3. Moderate to severe anemia 4. History of hypertension 5. History of atrial fibrillation with acceptable ventricular response on anticoagulation 6. Staph aureus infection, right leg 7. History of bladder carcinoma 8. History of hypertension, controlled PLAN: 1. The patient at discharge was advised to take the Lasix way before any food. I did ask him about what time he takes the medication he said about 7:00 and goes to eat about 8:00. I told him that maybe he should take the Lasix a head of the other medication by itself. 2. Also discussed the Pantoprazole in light of his anemia. This might have something to due with the anemia since it prevents the absorption of iron on the first part of the duodenum and then the B complex in the stomach and the rest of the intestine. I did advise him if he can tolerate taking the Pantoprazole every other day or every third day that it would probably be beneficially to the iron and B complex absorption. 3. He is prescribed Entresto 24-26mg #60 one twice a day. 4. I will prescribed Doxycycline 100mg two hours after breakfast and two hours after supper instead of Bactrim. 5. He is advised to see me either Sunday or Sunday at the office and should call the office Sunday for the appointment. PROGNOSIS: Guarded. TIME SPENT: GREATER THAN 30 MINUTES MTDD
--- NOTE | 2018-11-05 13:15 | PN ---
DATE OF SERVICE: 10/31/18 SUBJECTIVE: Today he is resting quietly and family is at bedside. OBJECTIVE: Vital signs today: Temperature 98.1, pulse rate 61, blood pressure 119/70, 02 sat 97% on room air. On telemetry he is running atrial fibrillation with bundle branch block. His labs and diagnostic testing have been reviewed. His wound culture to the lower extremities did grow out gram positive cocci, heavy growth. His most recent BNP NT-Pro-BNP drawn this morning was 1,370. The one yesterday was 963. His electrolytes were okay. His initial BUN 25.4 and creatinine 1.27. Estimated GFR was 54. His initial white count 6.20, hemoglobin 10, hematocrit 31.2. His platelet count 156. Weight is stable from yesterday. Heart irregular. Lungs are clear but diminished. Lower extremities are slightly decrease in swelling from yesterday. He does have open sores to lower extremities. They are currently non draining. They are 2 to 3+ pitting edema to the lower extremities but they do not seem as tight as they were yesterday. He does report he feels a little bit better today. He has been getting up to the bathroom with assistance. Further orders and recommendations per Dr. Mcbride. [facility] HOSPITALChristoph
== END 2018-11-01 17:54 | disposition home or self-care (01) ==
LOC: MEDSURG B 15:40
PROVIDERS: ADMIT General Practice; ATTEND General Practice
DX: I50.9 Heart failure, unspecified (principal); R60.0 Localized edema; M25.552 Pain in left hip; D64.9 Anemia, unspecified; I10 Essential (primary) hypertension; I48.91 Unspecified atrial fibrillation; Z79.01 Long term (current) use of anticoagulants; L08.89 Other specified local infections of the skin and subcutaneous tissue; B95.61 Methicillin susceptible Staphylococcus aureus infection as the cause of diseases classified elsewhere; R06.02 Shortness of breath; R63.5 Abnormal weight gain; E78.5 Hyperlipidemia, unspecified; I73.9 Peripheral vascular disease, unspecified
CPT/HCPCS: 36415; 80053; 81001; 82550; 83880; 84484; 85025; 86141; 87070; 87186; 93005; 93010

== ENCOUNTER 2018-11-11 11:44 | Observation (INO) ==
[2018-11-11 12:17] VITALS: BMI 23.0
[2018-11-11] MEDS ORDERED: NON-FORMULARY MEDICATION (Nitroglycerin [Nitroglycerin] 0.4 MG) SL PRN (12:57)
[2018-11-11] MEDS ORDERED: [UNRECOGNIZED DRUG - OTHER] PO PRN (12:57)
[2018-11-11] MEDS ORDERED: ACETAMINOPHEN PO PRN (12:57)
[2018-11-11] MEDS ORDERED: HYDROCODONE PO PRN (12:57)
[2018-11-11] MEDS: SACUBITRIL PO SCH (13:34)
[2018-11-11] MEDS: VALSARTAN PO SCH (13:34)
[2018-11-11] MEDS: MILK OF MAGNESIA PO SCH ×2 (16:18→22:06)
--- NOTE | 2018-11-11 17:21 | CT ---
EXAM: CT ABDOMEN AND PELVIS HISTORY: Abdominal pain and low back pain TECHNIQUE: CT abdomen and pelvis without intravenous contrast. Images were reconstructed using 5 mm section thickness. Reformations were prepared. COMPARISON: 10/05/2017 FINDINGS: Diagnostic limitations may exist without including contrast enhanced images. Cirrhotic appearing china er without focal lesions. Spleen is within normal limits. Probable tiny stones in the gallbladder. No pancreatic pathology is obvious. Adrenal glands are within normal limits. There is a 3 cm left renal cortical cyst. No hydronephrosis, nephrolithiasis or evidence of ureteral obstruction. There is mild bilateral perinephric fat stranding which is nonspecific. Severe vascular calcifications sug gesting atherosclerotic disease and / or diabetic angiopathy. Stomach is within normal limits. No a ppendix is seen. Bilateral inguinal hernias are present with the left hernia containing fat (coronal neck of 15 mm) and the right hernia containing at least one moderate length loop of bowel, small int estine without evidence of strangulation or obstruction. This larger hernia has a coronal neck of 4 cm. General bowel gas pattern is nonobstructive. There is moderate distal colon diverticulosis. No evidence of prostate enlargement or ascites. There is a small amount of gas within the urinary bladder. A few tiny foci of gas appear to be withi n the urinary bladder wall as well and there is minimal perivesical fat stranding. There are adjacen t diverticula although no definite regional inflammation at this time. A fistula between the sigmoid colon and urinary bladder could be considered. Correlate clinically. Bones are demineralized. At T11, there is mild loss of vertebral body height and sclerosis of the vertebral body. This it is sug gestive of a fracture and is new since the previous exam. See same day CT lumbar spine report. Ther e is no pneumoperitoneum. IMPRESSION: 1. T11 vertebral body fracture. See same day CT lumbar spine report. 2. Possible colovesicle fistula versus recent procedure versus less likely emphysematous cystitis. There is significant distal colon diverticulosis without current diverticulitis. See last paragraph of report. 3. Cholelithiasis. 4. Cirrhotic appearing liver.
--- NOTE | 2018-11-11 17:21 | CT ---
EXAM: CT scan of the lumbar spine without contrast HISTORY: Low back pain TECHNIQUE: Helical imaging of the lumbar spine was performed without contrast. Sagittal and coronal reconstructions and axial images were provided for interpretation. FINDINGS: There is straightening of the lumbar spine. There is no evidence of compression fracture. The paraspinal soft tissues are normal. No acute fractures are seen within the sacrum. Five lumba r-type vertebral bodies are identified. Segmental analysis: T12-L1: The central canal and neural foramina appear patent. L1-L2: The central canal and neural foramina appear patent. L2-L3: The central canal and neural foramina appear patent. L3-L4: There is diffuse disc bulge and mild facet arthropathy and enlargement of the posterior ligame nt flavum resulting in moderate central canal stenosis. The thecal sac is reduced to approximately 5 .9 mm AP. L4-L5: There is disc bulge and mild facet arthropathy and enlargement of the posterior ligament flav um resulting in moderate central canal and lateral recess stenosis. The thecal sac is measuring 6.2 mm AP. There is mild narrowing of the neural foramina. L5-S1: The central canal and lateral recesses and neural foramina appear patent. There is mild face t arthropathy. IMPRESSION: No acute fractures are seen within the lumbar spine. Moderate central canal and lateral recess stenosis seen at the L3-L4 and L4-L5 disc spaces. Facet joint arthropathy seen within the lower lumbar spine.
[2018-11-11] MEDS ORDERED: ROCEPHIN 1 GM VIAL 1 GM in SODIUM CHLORIDE 50 ML IV SCH (19:00)
[2018-11-11] MEDS ORDERED: PYRIDIUM PO SCH (19:00)
[2018-11-11] MEDS ORDERED: SACUBITRIL PO SCH (21:00)
[2018-11-11] MEDS ORDERED: VALSARTAN PO SCH (21:00)
[2018-11-11] MEDS ORDERED: GENTAMICIN SULFATE ONE (21:44)
[2018-11-11] MEDS ORDERED: ROCEPHIN 1 GM VIAL ONE (21:44)
[2018-11-11] MEDS ORDERED: INFUVITE ADULT IV ONE (21:45)
[2018-11-11] MEDS: INFUVITE ADULT 10 ML in D5%-1/2NS-KCL 20 MEQ/L IV SOL 1,000 ML IV SCH (21:52)
[2018-11-11] MEDS ORDERED: NITROSTAT SL PRN (22:00)
[2018-11-11] MEDS: XALATAN OP SCH (22:03)
[2018-11-11] MEDS: ZOCOR PO SCH (22:04)
[2018-11-11] MEDS: PRADAXA PO SCH (22:05)
[2018-11-11] MEDS: NON-FORMULARY MEDICATION (Ferrous Sulfate [Iron] 325 MG) PO SCH (22:06)
[2018-11-11] MEDS: ENTRESTO 24 MG-26 MG TABLET PO SCH (22:06)
[2018-11-11] MEDS: PROSCAR PO SCH (22:06)
[2018-11-11] MEDS: NON-FORMULARY MEDICATION (Dabigatran Etexilate Mesylate [Pradaxa] 150 MG) PO SCH (22:16)
[2018-11-11] MEDS: FINASTERIDE 5 MG PO SCH (22:17)
[2018-11-11] MEDS: LATANOPROST OP SCH (22:18)
[2018-11-11] MEDS: NON-FORMULARY MEDICATION (Simvastatin [Simvastatin] 20 MG) PO SCH (22:18)
[2018-11-11] MEDS: GENTAMICIN SULFATE 80 MG in SODIUM CHLORIDE 50 ML IV SCH ×2 (23:05→23:06)
[2018-11-12] MEDS: NORCO 7.5-325 PO PRN ×3 (03:22→22:32)
[2018-11-12] MEDS: LASIX TAB PO SCH (05:46)
[2018-11-12] MEDS: PROTONIX PO SCH (05:46)
[2018-11-12] MEDS: GENTAMICIN SULFATE 80 MG in SODIUM CHLORIDE 50 ML IV SCH ×2 (08:27→20:27)
[2018-11-12] MEDS: MILK OF MAGNESIA PO SCH ×2 (08:28→20:27)
[2018-11-12] MEDS: TENORMIN PO SCH (08:28)
[2018-11-12] MEDS: ENTRESTO 24 MG-26 MG TABLET PO SCH ×2 (08:29→20:28)
[2018-11-12] MEDS: CALCIUM CITRATE PO SCH (08:30)
[2018-11-12] MEDS: [UNRECOGNIZED DRUG - OTHER] PO SCH (08:30)
[2018-11-12] MEDS: [UNRECOGNIZED DRUG - MIXTURE] PO SCH (08:30)
[2018-11-12] MEDS: VITAMIN D3 PO SCH (08:30)
[2018-11-12] MEDS: PRADAXA PO SCH ×2 (08:31→20:28)
[2018-11-12] MEDS: ROCEPHIN 1 GM/50 ML D5W 1 GM in PREMIX 50 ML D5W 1 BAG IV SCH (09:36)
[2018-11-12] MEDS ORDERED: INFUVITE ADULT IV ONE (09:40)
[2018-11-12] MEDS: INFUVITE ADULT 10 ML in D5%-1/2NS-KCL 20 MEQ/L IV SOL 1,000 ML IV SCH (11:20)
[2018-11-12] MEDS ORDERED: CITRATE OF MAGNESIA PO STA (14:05)
--- NOTE | 2018-11-12 14:37 | PN ---
DATE OF SERVICE: 11/12/18 SUBJECTIVE: Today his vital signs are stable. Temperature 97.9, pulse 78, blood pressure 157 /64, O2 saturation 95% on room air, respiratory rate 16, weight 162 pounds. Today his hgb 10.4, hct 32.8, WBC 6.34, BUN 23.6, creatinine improved at 0.95 and his GFR has improved from 49 to 75. There is no microbiology to review. A CT scan of the abdomen and pelvis was reviewed thus the reason for changing the patient from observation to an acute status. Dr. Mcbride is currently treating the patient for an acute cystitis and possible pyelonephritis. There is some concern for an infection in the kidney. The CT scan reads as possible colovesical fistula versus recent procedure versus less likely emphysematous cystitis. There is significant distal colon diverticulosis without current diverticulitis. Also reveals cholelithiasis and cirrhotic appearing liver. Again the reason for changing the patient from observation to an acute stay was to treat the patient for an acute cystitis and possible pyelonephritis and concern for infection in the kidney. Currently the patient is being treated with Ceftriaxone and Gentamicin. His kidney function has improved. His dysuria and dribbling has significantly improved. He has no further dribbling. He is able to urinate today without any difficulty. He is still having problems with constipation. He received several fleets enemas yesterday as well as milk of magnesia three times. He continues to get IV fluids. Antibiotics will be continued at this time as well as IV fluids as this is helping with patient's symptoms. LUNGS: Clear ABDOMEN: Soft, nontender. Bowel sounds are positive all four quadrant HEART: Regular rate and rhythm. Further orders and recommendations per Dr. Mcbride [facility]
[2018-11-12] MEDS: FERROUS SULFATE PO SCH (20:28)
[2018-11-12] MEDS: XALATAN OP SCH (20:28)
[2018-11-12] MEDS: PROSCAR PO SCH (20:28)
[2018-11-12] MEDS: ZOCOR PO SCH (20:29)
[2018-11-13] MEDS ORDERED: INFUVITE ADULT IV ONE ×2 (00:39→14:14)
[2018-11-13] MEDS: INFUVITE ADULT 10 ML in D5%-1/2NS-KCL 20 MEQ/L IV SOL 1,000 ML IV SCH ×2 (00:43→15:23)
[2018-11-13] MEDS: PROTONIX PO SCH (05:42)
[2018-11-13] MEDS: LASIX TAB PO SCH (05:42)
[2018-11-13] MEDS: NORCO 7.5-325 PO PRN ×2 (06:48→17:17)
[2018-11-13] MEDS: ROCEPHIN 1 GM/50 ML D5W 1 GM in PREMIX 50 ML D5W 1 BAG IV SCH (08:42)
[2018-11-13] MEDS: MILK OF MAGNESIA PO SCH ×2 (08:45→20:33)
[2018-11-13] MEDS: ENTRESTO 24 MG-26 MG TABLET PO SCH ×2 (08:47→20:32)
[2018-11-13] MEDS: PRADAXA PO SCH ×2 (08:48→20:31)
[2018-11-13] MEDS: [UNRECOGNIZED DRUG - MIXTURE] PO SCH (08:48)
[2018-11-13] MEDS: CALCIUM 500 + VIT D 200 MG TABLET PO SCH (08:48)
[2018-11-13] MEDS: TENORMIN PO SCH (08:54)
[2018-11-13] MEDS: GENTAMICIN SULFATE 80 MG in SODIUM CHLORIDE 50 ML IV SCH ×2 (09:55→20:31)
--- NOTE | 2018-11-13 15:50 | RS.PTINEVL ---
Subjective - Patient information Date of Evaluation: 11/13/18 Date of Arrival on Unit: 11/11/18 Admitted From:: Home Diagnosis: acute cystitis, pyelonephritis, Low back pain Usual Living Arrangement: With Others Living Arrangement Comments: lives with daughter Home Environment: House, Ramp Medical History: Hypertension, CHF, Arthritis Medical History Comments:: afib, peripheral art disease, T 11 vertebral fx, cirrhotic liver, CKD Medications: see chart Subjective Information/ Patient Comments:: pt states that he has been having back pain for quite a while. pt is somewhat confused regarding situation at times. - Level of function Prior to this admission, the patient could do the following:: Independent Selfcare, Independent Ambulation Current Level of Function: Partially Dependent Current Equipment Used at Home: O2 AND CPAP, rwx Pain Assessement - Location lumbar Description: Aching Intensity: 4 Pain Behavior: Rubbing Site, Facial Grimacing Pain Aggravating Factors: Standing, Sitting Pain Alleviating Factors: Medication, Lying Supine Interventions - Objective Patient Orientation: Person, Place Current Interventions: IV's, Telemetry Observation: pt wearing compression socks BLE Range of Motion - ROM Right Upper Extremity AROM: WFL's Left Upper Extremity AROM: WFL's Right Lower Extremity AROM: WFL's Left Lower Extremity AROM: WFL's Muscle Strength - Muscle Strength Right Upper Extremity Strength: Mild Weakness (grossly 4/5) Left Upper Extremity Strength: Mild Weakness (grossly 4/5) Right Lower Extremity Strength: Mild Weakness (hip flex 4-/5, knee flex/ext 4/5 , ankle DF/PF 4/5) Left Lower Extremity Strength: Mild Weakness (hip flex 4-/5, knee flex/ext 4/5, ankle DF/PF 4/5) Sensation - Sensation Right Upper Extremity Sensation: Intact/Normal Left Upper Extremity Sensation: Intact/Normal Right Lower Extremity Sensation: Intact/Normal Left Lower Extremity Sensation: Intact/Normal Palpation Palpation Findings: Tenderness, Muscle Guarding Comments:: pt presents with tenderness and muscle guarding R lumbar area. pt unable to tolerate lying completely supine due to increased LBP. pt also with + SLR on R. Hamstring tightness BLE R worse than L. Balance - Sitting Balance and Reactions Static Sitting Balance: Good Dynamic Sitting Balance: Fair Sitting Equilibrium Reactions: Delayed Left, Delayed Right Sitting Protective Reactions: Delayed Left, Delayed Right - Standing Balance and Reactions Static Standing Balance: Poor Dynamic Standing Balance: Poor Standing Equilibrium Reactions: Delayed Left, Delayed Right Standing Protective Reactions: Delayed Left, Delayed Right Functional Mobility - Bed Mobility Rolling R/L: Min Assist Scooting: Mod Assist Supine to Sit: Min Assist Sit to Supine: Min Assist - Transfers Sit to Stand: Min Assist Stand to Sit: Min Assist - Safety Awareness Safety Awareness: Fair MARCOS INDEX SCORE: n/a Ambulation - Ambulation Assistive Device Used: Rolling Walker Orthotic/Prosthetic Device: No Distance: 140ft Assistance needed with Ambulation: CGA, Min Assist Gait Deviations: Forward posture, Short stride, Deviates from path Ambulation Comments: pt amb with decreased step length, flexed posture, as well as deviating from path. Factors Affecting Ambulation: Decreased Balance, Pain, Weakness, Decreased Safety, Cognitive Status, Limited Endurance Treatment time - Time with patient Length of Evaluation: 22 Total treatment time: 27 Patient Education - Education Patient Education: Activity Modification, Education of Plan of Care Teaching Recipient: Patient Teaching Methods: Discussion Comments: discussion regarding POC as well safety with transfers. Assessment - Assessment Problem List:: Decreased level of function, Requires training/education, Decreased safety/Risk of falls, Weakness, Pain limits previous level of function Rehab Potential: Good Further Therapy Indicated?: Yes Candidate for Swing Bed for Therapy Services?: Would need to eval pt for swing bed at a later date. Short Term Goals GOAL #1: pt independent with rolling and scooting in bed Goal to be met by: 11/15/18 GOAL #2: Transfer sup to/from sit CGA Goal to be met by: 11/15/18 GOAL #3: Transfer sit to/from stand CGA Goal to be met by: 11/15/18 GOAL #4: pt amb with rwx 150ft with improved posture with CGA Goal to be met by: 11/15/18 GOAL #5: pt rate pain < 4 LBP Goal to be met by: 11/15/18 Delivery Route Driver Goals GOAL #1: pt transferred sup to/from sit to/from stand SBA Goal to be met by: 11/18/18 GOAL #2: pt amb functional distances with rwx with SBA to CGA Goal to be met by: 11/18/18 GOAL #3: Decrease LBP < 3/10 Goal to be met by: 11/18/18 Plan Plan of Care: Therapeutic EX, Therapeutic Activity Modalities: Cold Pack/Cryotherapy Other:: gait training Frequency of Treatment: 1-2 X day, as tolerated Duration of Treatment: 5 days Anticipated Discharge Destination: Home (may benefit from home health to progress with strengthening and balance) Treatment Diagnosis (ICD 10 Codes): LBP M 54.5. balance impaired R26.81. difficulty walking R26.2 Has the Physician been added for Co-signature?: Yes
[2018-11-13] MEDS: XALATAN OP SCH (20:31)
[2018-11-13] MEDS: PROSCAR PO SCH (20:32)
[2018-11-13] MEDS: ZOCOR PO SCH (20:32)
[2018-11-13] MEDS: FERROUS SULFATE PO SCH (20:32)
[2018-11-14] MEDS ORDERED: INFUVITE ADULT IV ONE ×2 (02:52→20:19)
[2018-11-14] MEDS: INFUVITE ADULT 10 ML in D5%-1/2NS-KCL 20 MEQ/L IV SOL 1,000 ML IV SCH ×3 (04:22→20:24)
[2018-11-14] MEDS: LASIX TAB PO SCH (05:47)
[2018-11-14] MEDS: PROTONIX PO SCH (05:47)
[2018-11-14] MEDS: NORCO 7.5-325 PO PRN ×4 (06:00→22:41)
[2018-11-14] MEDS: ROCEPHIN 1 GM/50 ML D5W 1 GM in PREMIX 50 ML D5W 1 BAG IV SCH (08:41)
[2018-11-14] MEDS: PRADAXA PO SCH ×2 (08:42→20:32)
[2018-11-14] MEDS: ENTRESTO 24 MG-26 MG TABLET PO SCH ×2 (08:50→20:25)
[2018-11-14] MEDS: CALCIUM 500 + VIT D 200 MG TABLET PO SCH (08:50)
[2018-11-14] MEDS: [UNRECOGNIZED DRUG - MIXTURE] PO SCH (08:51)
[2018-11-14] MEDS: MILK OF MAGNESIA PO SCH ×2 (09:00→20:27)
[2018-11-14] MEDS: TENORMIN PO SCH (09:00)
[2018-11-14] MEDS: GENTAMICIN SULFATE 80 MG in SODIUM CHLORIDE 50 ML IV SCH (10:05)
--- NOTE | 2018-11-14 13:52 | HP ---
DATE OF SERVICE: 11/11/18 CHIEF COMPLAINT: Difficulty urinating. HISTORY OF PRESENT ILLNESS: Mr. Stern is a pleasant 87-year-old patient of Dr. Mcbride who presented to the office on the date of admission with complaints of trouble urinating. He denied any burning or pain, just not being able to go to the bathroom. He complains of dribbling when he does go. He does complain of extreme pain to his lower back mainly on the right side. He is having trouble walking, standing and sitting and even lying down. Last night the pain was so bad that he couldn't eat or sleep. He reports that last week he was trying to put on his compression stockings and he hurt his back. He is having extreme pain to the lower back mainly to the right side. PAST MEDICAL HISTORY: Atrial fibrillation that is chronic Benign positional vertigo Bilateral carotid bruits Bilateral inguinal hernias Cardiac arrhythmias Carpal tunnel syndrome Chronic kidney disease Dyslipidemia Elevated PSA Hearing loss Hypertension Intermittent claudication Liver mass Osteoarthritis Peripheral arterial disease Prediabetes Tinnitus PAST SURGICAL HISTORY: Lesion removed from back 20+ years ago Transurethral resection of the prostate and bladder resection with cancer removed in October of 2016 Scraping of the left eye PERSONAL/FAMILY/SOCIAL HISTORY: Family history is not listed. Social history: Denies any substance abuse or alcohol abuse. He is a former smoker stopped at age 32. CURRENT MEDICATIONS: (HOME) Entresto 24/26 mg one tablet every 12 hours Latanoprost 2.5 mL drops one drop at bedtime Nitroglycerin 0.4 mg tablet as directed sublingual Ferrous Sulfate 325 mg tablet at bedtime Hydrocodone/Acetaminophen 7.5/325 mg one tablet twice a day as needed Pradaxa 150 mg twice a day Pantoprazole 40 mg daily Furosemide 40 mg daily Atenolol 25 mg tablet daily Simvastatin 25 mg at bedtime Calcium with Vitamin D one tablet daily Loratadine 10 mg at bedtime Leg cramp over the counter one tablet at bedtime Glucosamine Chondrointin capsule one capsule daily Finasteride 5 mg at bedtime ALLERGIES: DICLOFENAC AND PENICILLIN REVIEW OF SYSTEMS: CONSTITUTIONAL: No nightsweats. No fatigue, no malaise or lethargy. No fever or chills. HEENT: No reports of headache or nasal drainage, sore throat or sinus symptoms. CARDIOVASCULAR: Denies any complaints of chest pain. Denies any complaints of orthopnea. He does report chronic peripheral edema that has improved. He does have a history of atrial fibrillation. LUNGS: He denies any increase in shortness of breath. Denies any congestion. He does have a recent history of pulmonary hypertension. Denies any cough. GASTROINTESTINAL: He does complain of constipation and reports no bowel movement for several weeks. Denies any nausea, vomiting, diarrhea. Denies any blood in the stool. MUSCULOSKELETAL: No reports of any muscle pain, joint redness, swelling or any history of any musculoskeletal disorders. NEUROLOGICAL: He denies any complaints of dizziness or neurological deficits. PSYCHIATRIC: He denies any anxiety, depression or mood changes. No suicidal thoughts. No homicidal thoughts. SKIN: No rashes, lesions or wounds. ENDOCRINE: He does not have a history of diabetes mellitus or thyroid disease. He does not have any increase in thirst, urination, heat or cold intolerance. INTEGUMENTARY: No reports of any rashes or lesions. He does not have any open sores to his lower extremities. PHYSICAL EXAMINATION: GENERAL: The patient is alert, oriented. He is pleasant. VITAL SIGNS: In the office: Height 70", weight 163 lbs, temperature 97.5, pulse 86, respiratory rate 15, blood pressure 133/80, pulse ox 100% on room air. HEENT: Head is normocephalic, atraumatic. Pupils are equal. Conjunctivae are clear. Mucous membranes are moist. HEART: He does have an irregular rhythm. There is no JVD. He does have about 1 + pitting edema to the lower extremity with his compression hose on. There are no open sores. LUNGS: Clear. They are diminished. ABDOMEN: Soft, nontender, bowel sounds are positive all four quads. There is no tenderness or rigidity. LOWER EXTREMITIES: 1+ edema. There is full range of motion to the lower extremities. NEUROLOGIC: No overt neurological deficits noted. SKIN: Warm and dry. There are no overt lesions. No open sores to the lower extremities. On 11/01/08 his white count was 6.86, hemoglobin 10.2, hematocrit 32.1, platelet count 156. His NT-Pro-BNP on 11/01 was 1400. On 10/30/18 he had a urinalysis that was negative. ASSESSMENT: 1. Urinary retention. 2. Lumbar back pain. 3. Lower abdominal pain. 4. History of congestive heart failure. 5. Hypertension. 6. Hyperlipidemia. 7. Chronic atrial fibrillation. 8. History of chronic kidney disease. 9. History of liver mass. 10. Peripheral arterial disease. 11. History of prediabetes. PLAN: 1. Admit the patient. 2. Straight cath. 3. Bladder scan. 4. Home medicines will be resumed. 5. Urinalysis will also be obtained after straight cath in and out obtained. 6. Blood cultures will also be obtained as well as STAT blood work. 7. Further orders and recommendations per Dr. Mcbride. 8. We will also obtain a lumbar spine CT as well as abdominal and pelvis CT. TIME SPENT: GREATER THAN 65 MINUTES MTDD
[2018-11-14] MEDS: FERROUS SULFATE PO SCH (20:26)
[2018-11-14] MEDS: PROSCAR PO SCH (20:28)
[2018-11-14] MEDS: XALATAN OP SCH (20:29)
[2018-11-14] MEDS: ZOCOR PO SCH (20:31)
[2018-11-15] MEDS: INFUVITE ADULT 10 ML in D5%-1/2NS-KCL 20 MEQ/L IV SOL 1,000 ML IV SCH ×2 (01:20→14:14)
[2018-11-15] MEDS: NORCO 7.5-325 PO PRN ×2 (05:49→14:15)
[2018-11-15] MEDS: LASIX TAB PO SCH (05:49)
[2018-11-15] MEDS: PROTONIX PO SCH (05:50)
[2018-11-15] MEDS: VALSARTAN PO SCH ×6 (08:45→10:11)
[2018-11-15] MEDS: SACUBITRIL PO SCH ×6 (08:45→10:11)
[2018-11-15] MEDS ORDERED: TENORMIN PO SCH (09:00)
[2018-11-15] MEDS ORDERED: ROCEPHIN 1 GM/50 ML D5W 1 GM in PREMIX 50 ML D5W 1 BAG IV SCH (09:00)
[2018-11-15] MEDS: CALCIUM CITRATE PO SCH ×3 (09:41→10:02)
[2018-11-15] MEDS: [UNRECOGNIZED DRUG - OTHER] PO SCH ×3 (09:41→10:02)
[2018-11-15] MEDS: VITAMIN D3 PO SCH ×3 (09:41→10:02)
[2018-11-15] MEDS: MILK OF MAGNESIA PO SCH (09:43)
[2018-11-15] MEDS: NON-FORMULARY MEDICATION (Dabigatran Etexilate Mesylate [Pradaxa] 150 MG) PO SCH ×5 (09:44→10:08)
[2018-11-15] MEDS: [UNRECOGNIZED DRUG - MIXTURE] PO SCH (09:45)
[2018-11-15] MEDS: FINASTERIDE 5 MG PO SCH ×3 (10:03→10:08)
[2018-11-15] MEDS: LATANOPROST OP SCH ×3 (10:03→10:08)
[2018-11-15] MEDS: NON-FORMULARY MEDICATION (Ferrous Sulfate [Iron] 325 MG) PO SCH ×3 (10:03→10:08)
[2018-11-15] MEDS: NON-FORMULARY MEDICATION (Simvastatin [Simvastatin] 20 MG) PO SCH ×3 (10:04→10:10)
[2018-11-15 13:34] VITALS: BP 96/57; TEMP 98.9
[2018-11-16] MEDS ORDERED: PROTONIX PO SCH (06:30)
[2018-11-16] MEDS ORDERED: LASIX TAB PO SCH (06:30)
--- NOTE | 2018-11-26 13:12 | DS ---
DATE OF SERVICE: 11/15/18 PATIENT IDENTIFICATION: 87 year old male was seen at the office initially because of being miserable because of urinary frequency with dribbling. The patient had no fever or chills. He was complaining of pain mostly in the right paralumbar and right hip radiating down to the right lateral thigh. This began when he tried to put his below knee support hose and since then there is still experiencing pain. He was admitted for further diagnosis and treatment on observation. The patient had a CAT scan of the abdomen and pelvis while in observation on the day of admission without contrast and was read as T11 vertebral body fracture possible colovesical fistula versus recent procedure versus less likely emphysematous cystitis with very vesicle stranding. T11 had a compression fraction. Suggestion of the fistula was made by the radiologist. He also had cholelithiasis and chronic cirrhotic liver. Shows mild perinephric fat stranding bilaterally. Because of the CT scan findings the patient was changed from observation to full admission. However the insurance refuses to consider full admission and so the patient was reverted back to observation. The patient was given Gentamicin 80mg intervenously Q 12 hours initially because of the possibility of Colovesical fistula as well as paravesical stranding and perinephric stranding indicating some infection. The urinalysis however is normal. The patient's renal panel remained stable. Ceftriaxone 1 gram also was initiated on November 11, 2018. A repeat urinalysis remained normal and the Gentamicin was discontinued. The patient's dribbling has resolved. He denied any fever or chills and his appetite seemed to be some better and on 11/14/18 he had 75% breakfast, 10% lunch and 100% supper. 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 The patient at the time of discharge was alert, ambulatory with movement of all extremities and denies any frequency of urination or pain or fever. He denies any abdominal pain but he still has the pain in the back mostly on the right side radiating to the hip and thigh. The patient's bladder scan showed a residual 262 cc after urination. VITAL SIGNS: Temperature of 89.9, pulse 90, blood pressure 96/57, respiratory rate 18, oxygen saturation 100% at room air. The patient has no symptoms with a blood pressure of 96/57. LABS: WBC normal 6,780, hgb and hct below normal. MCV and MCH within normal limits. CMP showed slightly elevated creatinine 1.26, EGFR 54. It was 49 on admission. PRO BNP on admission was 693 and a day before discharge was 881. This patient is on Sacubitril. Last urinalysis on 10/14/18 was essentially normal. The patient on discharge is to continue the Hydrocodone 7.5-325 one every [address]'t [address] if drowsy. Resume Atenolol, resume the Dabigatran , Calcium citrate, Ferrous sulfate, Finasteride, Furosemide, Glucosamine Chondroitin. The other medications were discontinued. The patient was instructed to see me in one week after discharge and before if there is any concerns. FINAL DIAGNOSES: 1. Urinary retention, etiology undetermined, resolved 2. Urinary frequency with dribbling, resolved 3. 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 4. History of atrial fibrillation on anticoagulation 5. Cholelithiasis by CT 6. Peripheral arterial disease 7. Diabetes mellitus type 2 8. Compression fracture of T 11 9. Congestive heart failure, compensated 10.Hypertension,controlled CONDITION: Guarded. TIME SPENT: GREATER THAN 30 MINUTES MTDD
--- NOTE | 2018-12-03 15:19 | PN ---
DATE OF SERVICE: 11/14/18 SUBJECTIVE: Today Mr. Stern is complaining of some right posterior back pain that just started approximately an hour ago. He is not having any further problems with urinary retention and denies any problems with dribbling. Today Dr. Mcbride has ordered a CBC, CMP and a urinalysis as a STAT order. He is also going to order an NT-Pro-B ICE CARVER this has been placed in the computer. After further discussion with the patient, he did explain to Dr. Mcbride that he did have a procedure per his urologist; this is suspected to be a cystoscopy and this was done a day prior to his admission to the hospital. ABDOMEN: Soft, bowel sounds are positive in all four quads. He is not having any abdominal or pelvic tenderness on exam. After discussion with his insurance company, he will be changed from acute to observation stay. They are recommending that this be done today. Dr. Mcbride will follow up with the labs drawn today and again the status of the hospital stay has been changed and we will see what this lab work looks like and go from there. Again, he is continuing on the IV fluids and he is also on the Ceftriaxone and the Gentamicin and doing well on these. His urinary symptoms have seemed to have resolved. Further orders and recommendations per Dr. Mcbride. [facility]
--- NOTE | 2019-01-30 13:57 | PN ---
DATE OF SERVICE: 11/15/18 SUBJECTIVE: The patient had been admitted for urinary retention as well urinary frequency. He does have a significant past medical history of transitional cell carcinoma as well as history of atrial fibrillation. Plans are to discharge the patient home today. Please see the complete discharge summary for details for the discharge in the hospital stay. Today his temperature is 98.9, pulse 90, blood pressure 96/57, respiratory rate 18 and O2 saturation 100% at room air. The patient has no symptoms of a blood pressure of 96/57. His PRO BNP prior to discharge was 881. Again see the discharge summary for further details regarding this hospital stay. Today overall the patient is improved. ISMAEL
== END 2018-11-15 15:30 | disposition home or self-care (01) ==
LOC: INTOOBSV 11:44 → MEDSURG B 11:44 → UNDOADMOB 11:44 → OBSVTOIN 11:44 → INTOOBSV 11:55 → MEDSURG B 11:55 → UNDOADMOB 11:55 → UNDODISIN 11-15 15:30
PROVIDERS: ADMIT General Practice; ATTEND General Practice
DX: R33.9 Retention of urine, unspecified; E78.5 Hyperlipidemia, unspecified; E11.9 Type 2 diabetes mellitus without complications; K80.20 Calculus of gallbladder without cholecystitis without obstruction; I48.91 Unspecified atrial fibrillation; M48.54XA Collapsed vertebra, not elsewhere classified, thoracic region, initial encounter for fracture; I10 Essential (primary) hypertension; I73.9 Peripheral vascular disease, unspecified; Z79.01 Long term (current) use of anticoagulants; R35.0 Frequency of micturition; R10.9 Unspecified abdominal pain; M54.5 Low back pain; I50.9 Heart failure, unspecified